=== PATIENT | female | born 1960 | race Caucasian/White ===

== ENCOUNTER 2021-11-29 19:33 | Inpatient (IN) | payer OTHER ==
[2021-11-29] MEDS ORDERED: DEXAMETHASONE SOD PHOSPHATE 10 MG/1 ML VIAL IVPUSH ONE (20:14)
[2021-11-29] MEDS ORDERED: clonazePAM 0.5 MG TABLET PO ONE ×2 (20:16→22:27)
[2021-11-29] MEDS ORDERED: DEXAMETHASONE SOD PHOSPHATE 10 MG/1 ML VIAL ONE (20:27)
[2021-11-29] MEDS ORDERED: clonazePAM 0.5 MG TABLET ONE ×2 (20:27→22:29)
[2021-11-29] MEDS ORDERED: ALBUTEROL SO4 2.5/IPRATROPIUM 0.5 INH SOL 3 ML VIAL.NEB. NEB ONE (20:27)
[2021-11-29 21:02] LABS: VENOUS BASE EXCESS 4.6 mmol/L (-2-2); VENOUS O2 SATURATION 58.1 % (70-80); VENOUS PCO2 60.9 mmHg (38-52); VENOUS PH 7.341 (7.310-7.410)
[2021-11-29 21:04] LABS: BASO % 0.5 % (0-2.0); EOS % 1.6 % (0-4.5); HEMATOCRIT 40.4 % (32.4-45.2); LYMPH % 11.8 % (8-40); MCH 25.3 pg (25.7-33.7); MCHC 32.2 g/dl (32.0-36.0); MEAN CELL VOLUME 78.5 fl (80-96); MONO % 8.2 % (3.8-10.2); NEUT % 77.9 % (42.8-82.8); PLATELET COUNT 238 10^3/uL (134-434); RBC 5.15 M/mm3 (3.60-5.2); RDW 16.2 % (11.6-15.6); WHITE BLOOD COUNT 10.2 K/mm3 (4.0-10.0)
[2021-11-29 21:21] LABS: CHLORIDE 99 mmol/L (98-107); SODIUM 135 mmol/L (136-145)
[2021-11-29 21:23] LABS: CALCIUM 8.6 mg/dL (8.5-10.1)
[2021-11-29 21:24] LABS: ALBUMIN 3.3 g/dl (3.4-5.0); ANION GAP 5 MMOL/L (8-16); BLOOD UREA NITROGEN 9.6 mg/dL (7-18); CO2 32 mmol/L (21-32); GLUCOSE,RANDOM 201 mg/dL (74-106); MAGNESIUM 2.4 mg/dL (1.8-2.4)
[2021-11-29 21:27] LABS: CREATININE 0.9 mg/dL (0.55-1.3); SGOT/AST 16 U/L (15-37); SGPT/ALT 22 U/L (13-61)
[2021-11-29 21:29] LABS: BILIRUBIN,TOTAL 0.5 mg/dL (0.2-1); TOT PROT 6.4 g/dl (6.4-8.2)
[2021-11-29 21:30] LABS: ALK PHOS 106 U/L (45-117)
[2021-11-29] MEDS: ALBUTEROL SO4 2.5/IPRATROPIUM 0.5 INH SOL 3 ML VIAL.NEB. NEB SCH ×4 (22:00→22:46)
[2021-11-29 22:01] LABS: ARTERIAL BLD GAS O2 SATURATION 70.2 % (95-98); ARTERIAL BLOOD GAS BASE EXCESS 7.4 mmol/L (-2-2); ARTERIAL BLOOD GAS pH 7.369 (7.350-7.450)
[2021-11-29 22:06] LABS: ARTERIAL BLOOD GAS PO2 38.9 mmHg (80-100)
[2021-11-29 22:19] LABS: N-TERMINAL BNP 1548.89 pg/ml (5-125)
[2021-11-29] MEDS ORDERED: ASPIRIN 81 MG CHEWABLE TABLETS PO ONE (22:26)
[2021-11-29] MEDS ORDERED: traZODone HCL 100 MG TABLET (FP) PO ONE (22:27)
[2021-11-29] MEDS ORDERED: ASPIRIN 81 MG CHEWABLE TABLETS ONE (22:27)
[2021-11-30] MEDS ORDERED: CLOPIDOGREL BISULFATE 300 MG TABLET PO ONE (01:00)
[2021-11-30] MEDS ORDERED: ENOXAPARIN NA (PORCINE) 120 MG/0.8 ML DISP.SYRIN SQ SCH (01:07)
[2021-11-30] MEDS ORDERED: FUROSEMIDE 40 MG/4 ML INJECTABLE VIAL IVPUSH ONE (01:31)
[2021-11-30] MEDS ORDERED: ATORVASTATIN CA 80 MG TABLET (FP) PO ONE (01:33)
[2021-11-30] MEDS ORDERED: ATORVASTATIN CA 80 MG TABLET (FP) ONE (01:54)
[2021-11-30] MEDS ORDERED: CLOPIDOGREL BISULFATE 300 MG TABLET ONE (01:54)
[2021-11-30] MEDS ORDERED: ENOXAPARIN NA (PORCINE) 100 MG/1 ML DISP.SYRIN SQ ONE ×2 (01:54→11:26)
[2021-11-30] MEDS ORDERED: FUROSEMIDE 40 MG/4 ML INJECTABLE VIAL ONE ×2 (01:55→11:27)
[2021-11-30] MEDS ORDERED: ENOXAPARIN NA (PORCINE) 30 MG/0.3 ML DISP.SYRIN SQ ONE ×2 (01:55→11:26)
[2021-11-30] MEDS: ENOXAPARIN 100 MG, ENOXAPARIN 30 MG SQ SCH ×2 (02:10→11:39)
[2021-11-30 03:55] LABS: URINE APPEARANCE CLEAR; URINE BILIRUBIN NEGATIVE (NEGATIVE); URINE COLOR YELLOW; URINE GLUCOSE (UA) NEGATIVE (NEGATIVE); URINE KETONE NEGATIVE (NEGATIVE); URINE LEUK ESTERASE NEGATIVE (NEGATIVE); URINE NITRITE NEGATIVE (NEGATIVE); URINE PROTEIN NEGATIVE (NEGATIVE); URINE UROBILINOGEN 0.2 mg/dL (0.2-1.0)
[2021-11-30 06:47] LABS: HEMATOCRIT 41.8 % (32.4-45.2); HEMOGLOBIN 13.1 GM/dL (10.7-15.3); MCH 24.8 pg (25.7-33.7); MCHC 31.2 g/dl (32.0-36.0); MEAN CELL VOLUME 79.4 fl (80-96); MEAN PLT VOLUME 8.2 fl (7.5-11.1); PLATELET COUNT 256 10^3/uL (134-434); RBC 5.27 M/mm3 (3.60-5.2); WHITE BLOOD COUNT 6.7 K/mm3 (4.0-10.0)
[2021-11-30 07:01] LABS: CALCIUM 8.3 mg/dL (8.5-10.1)
[2021-11-30 07:02] LABS: ALBUMIN 3.2 g/dl (3.4-5.0); BLOOD UREA NITROGEN 8.2 mg/dL (7-18); MAGNESIUM 2.2 mg/dL (1.8-2.4)
[2021-11-30 07:05] LABS: CREATININE 0.9 mg/dL (0.55-1.3); PHOSPHOROUS 4.2 mg/dL (2.5-4.9)
[2021-11-30 07:06] LABS: BILIRUBIN,TOTAL 0.4 mg/dL (0.2-1); TOT PROT 6.6 g/dl (6.4-8.2)
[2021-11-30] MEDS ORDERED: CLOPIDOGREL BISULFATE 75 MG TABLET (FP) PO SCH (10:00)
[2021-11-30 10:27] LABS: ANISOCYTOSIS 0; MACROCYTOSIS 0; PLATELET ESTIMATE NORMAL
[2021-11-30] MEDS: INSULIN SLIDING SCALE (NOVOLOG) 1 VIAL SQ SCH ×3 (11:21→17:35)
[2021-11-30] MEDS ORDERED: CLOPIDOGREL BISULFATE 75 MG TABLET (FP) ONE (11:26)
[2021-11-30] MEDS ORDERED: ASPIRIN COATED 81 MG TABLET.EC ONE (11:26)
[2021-11-30] MEDS: ASPIRIN COATED 81 MG TABLET.EC PO SCH (11:39)
[2021-11-30] MEDS: FUROSEMIDE 40 MG/4 ML INJECTABLE VIAL IVPUSH SCH (11:39)
[2021-11-30] MEDS: clonazePAM 0.5 MG TABLET PO SCH ×3 (14:10→21:32)
[2021-11-30] MEDS ORDERED: clonazePAM 0.5 MG TABLET PO SCH (14:15)
[2021-11-30] MEDS ORDERED: PATIENT'S OWN MEDICATION (NON-FORMULARY) (Ipratropium/Albuterol Sulfate 1 PUFF Inhaler) NEB PRN (15:34)
[2021-11-30] MEDS ORDERED: MAG HYDROX/AL HYDROX/SIMETH 30 ML UNIT-DOSE CUP PO PRN (15:45)
[2021-11-30 19:10] VITALS: BMI 44.6
[2021-11-30] MEDS: ATORVASTATIN CA 40 MG TABLET (FP) PO SCH (21:32)
[2021-11-30] MEDS: PREGABALIN 75 MG CAPSULE PO SCH (21:33)
[2021-11-30] MEDS: traZODone HCL 50 MG TABLET (FP) PO SCH (21:33)
[2021-11-30] MEDS: SENNOSIDES 8.6MG TABLET (FP) PO SCH (21:35)
[2021-11-30] MEDS: CILOSTAZOL 50 MG TABLET PO SCH (22:00)
[2021-11-30] MEDS: HALOPERIDOL 0.5 MG TABLET PO SCH (22:00)
[2021-11-30] MEDS: BUDESONIDE/FORMETEROL FUMARATE 160/4.5 mcg INHALER IH SCH (22:00)
[2021-12-01] MEDS ORDERED: LEVOTHYROXINE NA 50 MCG TABLET (FP) ONE (05:52)
[2021-12-01] MEDS ORDERED: LEVOTHYROXINE NA 125 MCG TABLET (FP) ONE (05:52)
[2021-12-01] MEDS: LEVOTHYROXINE 50 MCG, LEVOTHYROXINE 125 MCG PO SCH (06:03)
[2021-12-01] MEDS: INSULIN SLIDING SCALE (NOVOLOG) 1 VIAL SQ SCH ×3 (06:07→17:01)
[2021-12-01] MEDS ORDERED: LEVOTHYROXINE NA 150 MCG TABLET PO SCH (10:00)
[2021-12-01] MEDS ORDERED: PATIENT'S OWN MEDICATION (NON-FORMULARY) (Lurasidone Hcl [Latuda] 60 MG Tablet) PO SCH (10:00)
[2021-12-01] MEDS ORDERED: PATIENT'S OWN MEDICATION (NON-FORMULARY) (Linaclotide [Linzess] 145 MCG Capsule) PO SCH (10:00)
[2021-12-01] MEDS ORDERED: POLYETHYLENE GLYCOL (HEALTHYLAX) 3350 17 GM PACKET PO SCH (10:00)
[2021-12-01] MEDS: ASPIRIN COATED 81 MG TABLET.EC PO SCH (10:06)
[2021-12-01] MEDS: CILOSTAZOL 50 MG TABLET PO SCH ×2 (10:06→21:26)
[2021-12-01] MEDS: PREGABALIN 75 MG CAPSULE PO SCH ×2 (10:06→21:26)
[2021-12-01] MEDS: LISINOPRIL 5 MG TABLET PO SCH ×2 (10:07→10:15)
[2021-12-01] MEDS: clonazePAM 0.5 MG TABLET PO SCH ×4 (10:08→21:25)
[2021-12-01] MEDS: NICOTINE 14 MG/24 HOURS TOPICAL PATCH TD SCH (10:09)
[2021-12-01] MEDS: FUROSEMIDE 40 MG/4 ML INJECTABLE VIAL IVPUSH SCH (10:10)
[2021-12-01] MEDS: lamoTRIgine 100 MG TABLET PO SCH ×2 (10:13→21:25)
[2021-12-01] MEDS: HALOPERIDOL 0.5 MG TABLET PO SCH ×2 (10:13→21:25)
[2021-12-01] MEDS: BUDESONIDE/FORMETEROL FUMARATE 160/4.5 mcg INHALER IH SCH ×2 (10:36→21:31)
[2021-12-01] MEDS: CITALOPRAM HYDROBROMIDE 10 MG TABLET PO SCH (10:37)
[2021-12-01 11:14] LABS: BASO % 0.2 % (0-2.0); EOS % 1.4 % (0-4.5); HEMATOCRIT 44.8 % (32.4-45.2); HEMOGLOBIN 13.8 GM/dL (10.7-15.3); LYMPH % 14.4 % (8-40); MCH 24.4 pg (25.7-33.7); MCHC 30.8 g/dl (32.0-36.0); MEAN PLT VOLUME 8.2 fl (7.5-11.1); MONO % 7.1 % (3.8-10.2); NEUT % 76.9 % (42.8-82.8); PLATELET COUNT 272 10^3/uL (134-434); RBC 5.66 M/mm3 (3.60-5.2); RDW 16.1 % (11.6-15.6); WHITE BLOOD COUNT 7.4 K/mm3 (4.0-10.0)
[2021-12-01 11:33] LABS: CHLORIDE 98 mmol/L (98-107); SODIUM 137 mmol/L (136-145)
[2021-12-01 11:35] LABS: ALBUMIN 3.2 g/dl (3.4-5.0); ANION GAP 5 MMOL/L (8-16); CALCIUM 8.8 mg/dL (8.5-10.1); CO2 34 mmol/L (21-32); GLUCOSE,RANDOM 211 mg/dL (74-106)
[2021-12-01 11:36] LABS: BLOOD UREA NITROGEN 7.7 mg/dL (7-18)
[2021-12-01 11:38] LABS: CREATININE 0.8 mg/dL (0.55-1.3)
[2021-12-01 11:39] LABS: SGOT/AST 18 U/L (15-37); SGPT/ALT 24 U/L (13-61)
[2021-12-01 11:40] LABS: BILIRUBIN,TOTAL 0.6 mg/dL (0.2-1); TOT PROT 6.4 g/dl (6.4-8.2)
[2021-12-01 11:41] LABS: ALK PHOS 91 U/L (45-117)
[2021-12-01] MEDS: metoPROLOL SUCCINATE 25 MG TAB.SR.24H (FP) PO SCH (13:57)
[2021-12-01] MEDS: traZODone HCL 50 MG TABLET (FP) PO SCH (21:25)
[2021-12-01] MEDS: ATORVASTATIN CA 40 MG TABLET (FP) PO SCH (21:25)
[2021-12-01] MEDS: SENNOSIDES 8.6MG TABLET (FP) PO SCH (21:31)
[2021-12-02] MEDS ORDERED: LEVOTHYROXINE NA 125 MCG TABLET (FP) ONE (05:55)
[2021-12-02] MEDS ORDERED: LEVOTHYROXINE NA 50 MCG TABLET (FP) ONE (05:55)
[2021-12-02] MEDS: INSULIN SLIDING SCALE (NOVOLOG) 1 VIAL SQ SCH ×3 (06:09→17:56)
[2021-12-02] MEDS: LEVOTHYROXINE 50 MCG, LEVOTHYROXINE 125 MCG PO SCH (06:12)
[2021-12-02 08:49] LABS: BASO % 0.2 % (0-2.0); EOS % 1.7 % (0-4.5); HEMATOCRIT 44.5 % (32.4-45.2); HEMOGLOBIN 14.4 GM/dL (10.7-15.3); LYMPH % 16.2 % (8-40); MCH 25.7 pg (25.7-33.7); MCHC 32.3 g/dl (32.0-36.0); MEAN CELL VOLUME 79.5 fl (80-96); MEAN PLT VOLUME 7.8 fl (7.5-11.1); MONO % 9.8 % (3.8-10.2); NEUT % 72.1 % (42.8-82.8); PLATELET COUNT 283 10^3/uL (134-434); RBC 5.59 M/mm3 (3.60-5.2); RDW 16.3 % (11.6-15.6); WHITE BLOOD COUNT 7.4 K/mm3 (4.0-10.0)
[2021-12-02 09:04] LABS: CHLORIDE 101 mmol/L (98-107); SODIUM 140 mmol/L (136-145)
[2021-12-02 09:10] LABS: CALCIUM 9.5 mg/dL (8.5-10.1)
[2021-12-02 09:11] LABS: ALBUMIN 3.3 g/dl (3.4-5.0); ANION GAP 6 MMOL/L (8-16); BLOOD UREA NITROGEN 7.6 mg/dL (7-18); CO2 33 mmol/L (21-32); GLUCOSE,RANDOM 190 mg/dL (74-106)
[2021-12-02 09:13] LABS: SGOT/AST 12 U/L (15-37); SGPT/ALT 24 U/L (13-61)
[2021-12-02 09:14] LABS: CREATININE 0.9 mg/dL (0.55-1.3)
[2021-12-02 09:15] LABS: BILIRUBIN,TOTAL 0.7 mg/dL (0.2-1); TOT PROT 6.6 g/dl (6.4-8.2)
[2021-12-02 09:16] LABS: ALK PHOS 93 U/L (45-117)
[2021-12-02] MEDS: FUROSEMIDE 40 MG/4 ML INJECTABLE VIAL IVPUSH SCH (09:35)
[2021-12-02] MEDS: LISINOPRIL 5 MG TABLET PO SCH (09:36)
[2021-12-02] MEDS: CITALOPRAM HYDROBROMIDE 10 MG TABLET PO SCH (09:38)
[2021-12-02] MEDS: clonazePAM 0.5 MG TABLET PO SCH ×4 (09:38→21:00)
[2021-12-02] MEDS: CILOSTAZOL 50 MG TABLET PO SCH ×2 (09:38→21:03)
[2021-12-02] MEDS: PREGABALIN 75 MG CAPSULE PO SCH ×2 (09:38→21:01)
[2021-12-02] MEDS: HALOPERIDOL 0.5 MG TABLET PO SCH ×2 (09:39→21:03)
[2021-12-02] MEDS: ASPIRIN COATED 81 MG TABLET.EC PO SCH (09:39)
[2021-12-02] MEDS: metoPROLOL SUCCINATE 25 MG TAB.SR.24H (FP) PO SCH (09:40)
[2021-12-02] MEDS: NICOTINE 14 MG/24 HOURS TOPICAL PATCH TD SCH (09:42)
[2021-12-02] MEDS: lamoTRIgine 100 MG TABLET PO SCH ×2 (09:44→21:00)
[2021-12-02] MEDS: BUDESONIDE/FORMETEROL FUMARATE 160/4.5 mcg INHALER IH SCH ×2 (10:05→21:44)
[2021-12-02] MEDS: POLYETHYLENE GLYCOL (HEALTHYLAX) 3350 17 GM PACKET PO SCH ×2 (14:24→21:02)
[2021-12-02] MEDS: traZODone HCL 50 MG TABLET (FP) PO SCH (21:01)
[2021-12-02] MEDS: SENNOSIDES 8.6MG TABLET (FP) PO SCH (21:01)
[2021-12-02] MEDS: ATORVASTATIN CA 40 MG TABLET (FP) PO SCH (21:01)
[2021-12-03] MEDS ORDERED: MAG HYDROX/AL HYDROX/SIMETH 30 ML UNIT-DOSE CUP PO PRN (05:04)
[2021-12-03] MEDS ORDERED: LEVOTHYROXINE NA 50 MCG TABLET (FP) ONE (05:44)
[2021-12-03] MEDS ORDERED: LEVOTHYROXINE NA 125 MCG TABLET (FP) ONE (05:44)
[2021-12-03] MEDS: POLYETHYLENE GLYCOL (HEALTHYLAX) 3350 17 GM PACKET PO SCH ×2 (06:03→13:46)
[2021-12-03] MEDS: INSULIN SLIDING SCALE (NOVOLOG) 1 VIAL SQ SCH ×2 (06:06→12:16)
[2021-12-03] MEDS ORDERED: LEVOTHYROXINE 50 MCG, LEVOTHYROXINE 125 MCG PO SCH (07:00)
[2021-12-03 09:05] LABS: CHLORIDE 102 mmol/L (98-107); SODIUM 140 mmol/L (136-145)
[2021-12-03 09:13] LABS: ALBUMIN 3.1 g/dl (3.4-5.0); CALCIUM 8.8 mg/dL (8.5-10.1); GLUCOSE,RANDOM 151 mg/dL (74-106)
[2021-12-03 09:14] LABS: ANION GAP 7 MMOL/L (8-16); BLOOD UREA NITROGEN 8.4 mg/dL (7-18); CO2 31 mmol/L (21-32)
[2021-12-03 09:16] LABS: SGPT/ALT 26 U/L (13-61)
[2021-12-03 09:17] LABS: CREATININE 0.8 mg/dL (0.55-1.3); SGOT/AST 11 U/L (15-37)
[2021-12-03 09:18] LABS: BILIRUBIN,TOTAL 0.6 mg/dL (0.2-1); TOT PROT 6.1 g/dl (6.4-8.2)
[2021-12-03 09:19] LABS: ALK PHOS 93 U/L (45-117)
[2021-12-03] MEDS: clonazePAM 0.5 MG TABLET PO SCH ×2 (09:23→13:45)
[2021-12-03] MEDS ORDERED: metoPROLOL SUCCINATE 25 MG TAB.SR.24H (FP) PO SCH (10:00)
[2021-12-03] MEDS ORDERED: NICOTINE 14 MG/24 HOURS TOPICAL PATCH TD SCH (10:00)
[2021-12-03] MEDS ORDERED: ASPIRIN COATED 81 MG TABLET.EC PO SCH (10:00)
[2021-12-03] MEDS ORDERED: PREGABALIN 75 MG CAPSULE PO SCH (10:00)
[2021-12-03] MEDS ORDERED: CILOSTAZOL 50 MG TABLET PO SCH (10:00)
[2021-12-03] MEDS ORDERED: CITALOPRAM HYDROBROMIDE 10 MG TABLET PO SCH (10:00)
[2021-12-03] MEDS ORDERED: HALOPERIDOL 0.5 MG TABLET PO SCH (10:00)
[2021-12-03] MEDS ORDERED: LISINOPRIL 5 MG TABLET PO SCH (10:00)
[2021-12-03] MEDS ORDERED: BUDESONIDE/FORMETEROL FUMARATE 160/4.5 mcg INHALER IH SCH (10:00)
[2021-12-03] MEDS ORDERED: TORSEMIDE 20 MG TABLET (FP) PO SCH (10:00)
[2021-12-03] MEDS ORDERED: PANTOPRAZOLE 20 MG TABLET PO SCH ×2 (10:00)
[2021-12-03] MEDS ORDERED: lamoTRIgine 100 MG TABLET PO SCH (10:00)
[2021-12-03 13:15] VITALS: BP 120/79; PULSE 90; TEMP 97.9
[2021-12-03] MEDS ORDERED: SENNOSIDES 8.6MG TABLET (FP) PO SCH (22:00)
[2021-12-03] MEDS ORDERED: ATORVASTATIN CA 40 MG TABLET (FP) PO SCH (22:00)
[2021-12-03] MEDS ORDERED: traZODone HCL 50 MG TABLET (FP) PO SCH (22:00)
== END 2021-12-03 16:28 | DRG 291 ==
LOC: JER 19:33 → JERBED 22:19 → J4W 11-30 18:42 → J8W 12-02 19:09
PROVIDERS: ADMIT Internal Medicine; ATTEND Family Medicine
DX: I11.0 Hypertensive heart disease with heart failure (principal); J96.01 Acute respiratory failure with hypoxia; I50.33 Acute on chronic diastolic (congestive) heart failure; J96.02 Acute respiratory failure with hypercapnia; Z68.41 Body mass index [BMI] 40.0-44.9, adult; I24.8 Other forms of acute ischemic heart disease; J98.11 Atelectasis; J44.9 Chronic obstructive pulmonary disease, unspecified; E78.00 Pure hypercholesterolemia, unspecified; E03.9 Hypothyroidism, unspecified; K59.03 Drug induced constipation; T40.2X5A Adverse effect of other opioids, initial encounter; F20.9 Schizophrenia, unspecified; E66.01 Morbid (severe) obesity due to excess calories; E11.51 Type 2 diabetes mellitus with diabetic peripheral angiopathy without gangrene; R77.8 Other specified abnormalities of plasma proteins; I25.10 Atherosclerotic heart disease of native coronary artery without angina pectoris; F17.200 Nicotine dependence, unspecified, uncomplicated; K59.00 Constipation, unspecified; K58.9 Irritable bowel syndrome, unspecified; Z86.73 Personal history of transient ischemic attack (TIA), and cerebral infarction without residual deficits; Z99.81 Dependence on supplemental oxygen
CPT/HCPCS: 36415; 36600; 71045-TC-FY; 71275-TC; 80053; 80061; 81003; 82550; 82553; 82803; 82962; 83036; 83735; 83880; 84100; 84439; 84443; 84484; 85025; 85379; 87040; 87086; 93005; 93010; 93306-TC; 99285-25; C9803; J1100; Q9967; U0003; U0005

== ENCOUNTER 2022-01-29 16:29 | Inpatient (IN) | payer OTHER ==
[2022-01-29 17:08] VITALS: BMI 41.5
[2022-01-29] MEDS ORDERED: ALBUTEROL SO4 2.5/IPRATROPIUM 0.5 INH SOL 3 ML VIAL.NEB. NEB ONE ×2 (17:16→17:22)
[2022-01-29] MEDS ORDERED: methylPREDNISolone NA SUCC 125 MG/2 ML VIAL IVPB ONE (17:17)
[2022-01-29] MEDS ORDERED: methylPREDNISolone NA SUCC 125 MG/2 ML VIAL ONE (17:22)
[2022-01-29 18:17] LABS: BASO % 0.3 % (0-2.0); EOS % 1.4 % (0-4.5); HEMATOCRIT 42.2 % (32.4-45.2); HEMOGLOBIN 13.4 GM/dL (10.7-15.3); LYMPH % 11.1 % (8-40); MCH 25.6 pg (25.7-33.7); MCHC 31.9 g/dl (32.0-36.0); MEAN CELL VOLUME 80.3 fl (80-96); NEUT % 79.2 % (42.8-82.8); PLATELET COUNT 260 10^3/uL (134-434); RBC 5.25 M/mm3 (3.60-5.2); WHITE BLOOD COUNT 7.7 K/mm3 (4.0-10.0)
[2022-01-29 18:32] LABS: CALCIUM 9.3 mg/dL (8.5-10.1)
[2022-01-29 18:33] LABS: ALBUMIN 3.7 g/dl (3.4-5.0); BLOOD UREA NITROGEN 14.3 mg/dL (7-18)
[2022-01-29 18:36] LABS: CREATININE 1.5 mg/dL (0.55-1.3)
[2022-01-29 18:37] LABS: BILIRUBIN,TOTAL 0.4 mg/dL (0.2-1); TOT PROT 6.7 g/dl (6.4-8.2)
[2022-01-29 18:40] LABS: N-TERMINAL BNP 18.2 pg/ml (5-125)
[2022-01-29 19:22] LABS: ARTERIAL BLD GAS O2 SATURATION 98.8 % (95-98); ARTERIAL BLOOD GAS BASE EXCESS 3.1 mmol/L (-2-2); ARTERIAL BLOOD GAS PO2 136.5 mmHg (80-100); ARTERIAL BLOOD GAS pH 7.426 (7.350-7.450)
[2022-01-29] MEDS ORDERED: CEFTRIAXONE 1,000 MG in DEXTROSE 5%-WATER - 50 ML IVPB ONE (19:50)
[2022-01-29] MEDS ORDERED: SODIUM CHLORIDE 0.9% 500 ML INFUS.BAG IV ONE (19:50)
[2022-01-29] MEDS ORDERED: AZITHROMYCIN IVPB 500 MG in DEXTROSE 5%-WATER - 250 ML IVPB ONE (19:51)
[2022-01-29] MEDS ORDERED: AZITHROMYCIN IVPB 500 MG/250 ML BAG IVPB ONE (20:07)
[2022-01-29] MEDS ORDERED: CEFTRIAXONE 1 GM/50 ML BAG ONE (20:07)
[2022-01-29] MEDS ORDERED: LORazepam 2 MG/ML SDV VIAL IVPUSH ONE (21:01)
[2022-01-30 04:05] LABS: ARTERIAL BLD GAS O2 SATURATION 92.2 % (95-98); ARTERIAL BLOOD GAS BASE EXCESS 2.9 mmol/L (-2-2); ARTERIAL BLOOD GAS pH 7.424 (7.350-7.450)
[2022-01-30 04:06] LABS: ALLENS TEST POSITIVE
[2022-01-30] MEDS ORDERED: methylPREDNISolone NA SUCC 40 MG/1 ML VIAL ONE (04:34)
[2022-01-30] MEDS: methylPREDNISolone NA SUCC 40 MG/1 ML VIAL IVPUSH SCH ×3 (04:45→18:09)
[2022-01-30] MEDS ORDERED: LEVOTHYROXINE NA 100 MCG TABLET (FP) ONE (06:38)
[2022-01-30] MEDS ORDERED: LEVOTHYROXINE NA 75 MCG TABLET (FP) ONE ×2 (06:38→06:44)
[2022-01-30] MEDS: LEVOTHYROXINE 100 MCG, LEVOTHYROXINE 75 MCG PO SCH (06:41)
[2022-01-30] MEDS: clonazePAM 0.5 MG TABLET PO SCH ×3 (06:41→18:08)
[2022-01-30] MEDS ORDERED: LEVOTHYROXINE NA 150 MCG TABLET PO SCH (07:00)
[2022-01-30 07:07] LABS: HEMATOCRIT 43.2 % (32.4-45.2); HEMOGLOBIN 13.9 GM/dL (10.7-15.3); MCH 25.8 pg (25.7-33.7); MCHC 32.2 g/dl (32.0-36.0); MEAN PLT VOLUME 8.2 fl (7.5-11.1); PLATELET COUNT 294 10^3/uL (134-434); RBC 5.39 M/mm3 (3.60-5.2); RDW 19.6 % (11.6-15.6); WHITE BLOOD COUNT 8.4 K/mm3 (4.0-10.0)
[2022-01-30 07:19] LABS: CALCIUM 9.5 mg/dL (8.5-10.1)
[2022-01-30 07:20] LABS: ALBUMIN 3.7 g/dl (3.4-5.0); BLOOD UREA NITROGEN 10.6 mg/dL (7-18)
[2022-01-30 07:23] LABS: CREATININE 1.1 mg/dL (0.55-1.3)
[2022-01-30 07:24] LABS: BILIRUBIN,TOTAL 0.8 mg/dL (0.2-1); TOT PROT 7.2 g/dl (6.4-8.2)
[2022-01-30 08:30] LABS: ANISOCYTOSIS 1+; MACROCYTOSIS 1+
[2022-01-30] MEDS ORDERED: ONDANSETRON 4 MG/2 ML VIAL IVPUSH PRN (09:21)
[2022-01-30] MEDS ORDERED: HALOPERIDOL 1 MG TABLET PO SCH (10:00)
[2022-01-30] MEDS ORDERED: DOCUSATE SODIUM 100 MG CAPSULE (FP) PO SCH (10:00)
[2022-01-30] MEDS ORDERED: FAMOTIDINE 20 MG TABLET PO SCH (10:00)
[2022-01-30] MEDS ORDERED: PATIENT'S OWN MEDICATION (NON-FORMULARY) (Lisinopril [Zestril] 2.5 MG Tablet) PO SCH (10:00)
[2022-01-30] MEDS ORDERED: AZITHROMYCIN IVPB 500 MG in DEXTROSE 5%-WATER - 250 ML IVPB SCH (10:00)
[2022-01-30] MEDS ORDERED: cefTRIAXone SODIUM 1 GM VIAL ONE (10:22)
[2022-01-30] MEDS ORDERED: DEXTROSE 5%-WATER - 50 ML IVPB ONE (10:23)
[2022-01-30] MEDS: PREGABALIN 75 MG CAPSULE PO SCH ×2 (10:30→21:52)
[2022-01-30] MEDS: lamoTRIgine 100 MG TABLET PO SCH ×2 (10:30→21:55)
[2022-01-30] MEDS: TORSEMIDE 20 MG TABLET (FP) PO SCH (10:30)
[2022-01-30] MEDS: metoPROLOL SUCCINATE 25 MG TAB.SR.24H (FP) PO SCH (10:31)
[2022-01-30] MEDS: CITALOPRAM HYDROBROMIDE 10 MG TABLET PO SCH (10:31)
[2022-01-30] MEDS: SENNOSIDES 8.6MG TABLET (FP) PO SCH ×2 (10:31→21:53)
[2022-01-30] MEDS: HALOPERIDOL PO SCH ×2 (10:32→21:52)
[2022-01-30] MEDS: CEFTRIAXONE 1 GM in DEXTROSE 5%-WATER - 50 ML IVPB SCH (10:33)
[2022-01-30] MEDS: ASPIRIN COATED 81 MG TABLET.EC PO SCH (10:55)
[2022-01-30] MEDS: POTASSIUM CHLORIDE TABS 10 MEQ TABLET.ER (FP) PO SCH (10:55)
[2022-01-30] MEDS ORDERED: AZITHROMYCIN IVPB 500 MG/250 ML BAG IVPB SCH (12:23)
[2022-01-30] MEDS: AZITHROMYCIN IVPB 500 MG/250 ML BAG IVPB SCH (13:03)
[2022-01-30 15:07] LABS: SARS-CoV-2 NAA Not Detected (Not Detected)
[2022-01-30] MEDS: DEXTROSE 5%-0.45% SALINE 1,000 ML IV SCH (15:10)
[2022-01-30 15:52] LABS: PH,URINE 8.5 (5.0-8.0); URINE APPEARANCE CLEAR; URINE BILIRUBIN NEGATIVE (NEGATIVE); URINE COLOR YELLOW; URINE GLUCOSE (UA) 1+ (NEGATIVE); URINE KETONE NEGATIVE (NEGATIVE); URINE LEUK ESTERASE NEGATIVE (NEGATIVE); URINE NITRITE NEGATIVE (NEGATIVE); URINE PROTEIN NEGATIVE (NEGATIVE); URINE UROBILINOGEN 0.2 mg/dL (0.2-1.0)
[2022-01-30] MEDS: ATORVASTATIN CA 40 MG TABLET (FP) PO SCH (21:52)
[2022-01-30] MEDS: traZODone HCL 100 MG TABLET (FP) PO SCH (21:52)
[2022-01-30] MEDS: QUEtiapine FUMARATE 200 MG TABLET PO SCH (21:52)
[2022-01-30] MEDS ORDERED: POLYETHYLENE GLYCOL (HEALTHYLAX) 3350 17 GM PACKET GT SCH (22:00)
[2022-01-31] MEDS: methylPREDNISolone NA SUCC 40 MG/1 ML VIAL IVPUSH SCH ×3 (01:22→18:03)
[2022-01-31] MEDS: clonazePAM 0.5 MG TABLET PO SCH ×4 (01:23→17:54)
[2022-01-31] MEDS ORDERED: LEVOTHYROXINE NA 100 MCG TABLET (FP) ONE ×2 (05:54→06:14)
[2022-01-31] MEDS ORDERED: LEVOTHYROXINE NA 75 MCG TABLET (FP) ONE ×2 (05:54→06:13)
[2022-01-31] MEDS: LEVOTHYROXINE 100 MCG, LEVOTHYROXINE 75 MCG PO SCH (06:14)
[2022-01-31] MEDS ORDERED: cefTRIAXone SODIUM 1 GM VIAL ONE (09:01)
[2022-01-31] MEDS ORDERED: DEXTROSE 5%-WATER - 50 ML IVPB ONE (09:01)
[2022-01-31] MEDS: AZITHROMYCIN IVPB 500 MG/250 ML BAG IVPB SCH (10:07)
[2022-01-31] MEDS: CEFTRIAXONE 1 GM in DEXTROSE 5%-WATER - 50 ML IVPB SCH (10:14)
[2022-01-31] MEDS: SENNOSIDES 8.6MG TABLET (FP) PO SCH ×2 (10:32→22:29)
[2022-01-31] MEDS: TORSEMIDE 20 MG TABLET (FP) PO SCH (10:35)
[2022-01-31] MEDS: PREGABALIN 75 MG CAPSULE PO SCH ×2 (10:35→22:54)
[2022-01-31] MEDS: lamoTRIgine 100 MG TABLET PO SCH ×2 (10:35→22:28)
[2022-01-31] MEDS: ASPIRIN COATED 81 MG TABLET.EC PO SCH (10:35)
[2022-01-31] MEDS: CITALOPRAM HYDROBROMIDE 10 MG TABLET PO SCH (10:36)
[2022-01-31] MEDS: metoPROLOL SUCCINATE 25 MG TAB.SR.24H (FP) PO SCH (10:36)
[2022-01-31] MEDS: HALOPERIDOL PO SCH ×2 (10:37→22:05)
[2022-01-31] MEDS: PANTOPRAZOLE SODIUM 40 MG VIAL IVPUSH SCH (10:40)
[2022-01-31] MEDS: POLYETHYLENE GLYCOL (HEALTHYLAX) 3350 17 GM PACKET GT SCH ×3 (10:40→23:19)
[2022-01-31] MEDS: MINERAL OIL ENEMA 133 ML ENEMA RC SCH (10:41)
[2022-01-31] MEDS: POTASSIUM CHLORIDE TABS 10 MEQ TABLET.ER (FP) PO SCH (11:59)
[2022-01-31] MEDS: DEXTROSE 5%-0.45% SALINE 1,000 ML IV SCH (15:04)
[2022-01-31] MEDS: ATORVASTATIN CA 40 MG TABLET (FP) PO SCH (22:28)
[2022-01-31] MEDS: HALOPERIDOL NGT SCH (22:56)
[2022-01-31] MEDS: lamoTRIgine 100 MG TABLET NGT SCH (22:57)
[2022-01-31] MEDS: traZODone HCL 100 MG TABLET (FP) PO SCH (22:58)
[2022-01-31] MEDS: QUEtiapine FUMARATE 200 MG TABLET NGT SCH (22:58)
[2022-01-31] MEDS: ATORVASTATIN CA 40 MG TABLET (FP) NGT SCH (22:59)
[2022-01-31] MEDS: traZODone HCL 100 MG TABLET (FP) NR SCH (23:25)
[2022-01-31] MEDS: SENNOSIDES 8.8 MG/5 ML BULK BOTTLE NGT SCH (23:25)
[2022-01-31] MEDS: QUEtiapine FUMARATE 200 MG TABLET PO SCH (23:29)
[2022-01-31] MEDS: clonazePAM 0.5 MG TABLET NGT SCH (23:40)
[2022-02-01] MEDS: methylPREDNISolone NA SUCC 40 MG/1 ML VIAL IVPUSH SCH ×3 (02:20→17:18)
[2022-02-01] MEDS ORDERED: LEVOTHYROXINE NA 75 MCG TABLET (FP) ONE (06:01)
[2022-02-01] MEDS ORDERED: LEVOTHYROXINE NA 100 MCG TABLET (FP) ONE (06:01)
[2022-02-01] MEDS: LEVOTHYROXINE 100 MCG, LEVOTHYROXINE 75 MCG NGT SCH (06:02)
[2022-02-01] MEDS: POLYETHYLENE GLYCOL (HEALTHYLAX) 3350 17 GM PACKET GT SCH ×3 (06:03→22:24)
[2022-02-01] MEDS: clonazePAM 0.5 MG TABLET NGT SCH ×3 (06:03→19:11)
[2022-02-01 06:54] LABS: HEMATOCRIT 45.6 % (32.4-45.2); HEMOGLOBIN 14.8 GM/dL (10.7-15.3); MCH 25.8 pg (25.7-33.7); MCHC 32.4 g/dl (32.0-36.0); MEAN CELL VOLUME 79.6 fl (80-96); MEAN PLT VOLUME 7.9 fl (7.5-11.1); PLATELET COUNT 257 10^3/uL (134-434); RBC 5.73 M/mm3 (3.60-5.2); RDW 19.7 % (11.6-15.6); WHITE BLOOD COUNT 9.3 K/mm3 (4.0-10.0)
[2022-02-01 07:07] LABS: CALCIUM 8.5 mg/dL (8.5-10.1)
[2022-02-01 07:08] LABS: BLOOD UREA NITROGEN 15.6 mg/dL (7-18); MAGNESIUM 2.2 mg/dL (1.8-2.4)
[2022-02-01 07:11] LABS: CREATININE 1.1 mg/dL (0.55-1.3)
[2022-02-01] MEDS ORDERED: DEXTROSE 5%-WATER - 50 ML IVPB ONE (09:19)
[2022-02-01] MEDS ORDERED: cefTRIAXone SODIUM 1 GM VIAL ONE (09:19)
[2022-02-01] MEDS: PREGABALIN 75 MG CAPSULE NR SCH ×2 (10:07→22:20)
[2022-02-01] MEDS: METOPROLOL TARTRATE 25 MG TABLET (FP) NGT SCH ×2 (10:07→22:23)
[2022-02-01] MEDS: lamoTRIgine 100 MG TABLET NGT SCH ×2 (10:07→22:26)
[2022-02-01] MEDS: ASPIRIN 81 MG CHEWABLE TABLETS NGT SCH (10:08)
[2022-02-01] MEDS: CEFTRIAXONE 1 GM in DEXTROSE 5%-WATER - 50 ML IVPB SCH (10:08)
[2022-02-01] MEDS: PANTOPRAZOLE SODIUM 40 MG VIAL IVPUSH SCH (10:08)
[2022-02-01] MEDS: TORSEMIDE 20 MG TABLET (FP) NR SCH (10:08)
[2022-02-01] MEDS: AZITHROMYCIN IVPB 500 MG/250 ML BAG IVPB SCH (10:09)
[2022-02-01] MEDS: CITALOPRAM HYDROBROMIDE 10 MG TABLET NGT SCH (10:12)
[2022-02-01] MEDS: SENNOSIDES 8.8 MG/5 ML BULK BOTTLE NGT SCH ×2 (10:13→22:29)
[2022-02-01] MEDS: HALOPERIDOL NGT SCH ×2 (10:14→22:27)
[2022-02-01] MEDS: MINERAL OIL ENEMA 133 ML ENEMA RC SCH (10:14)
[2022-02-01] MEDS ORDERED: PEG 3350/NA SULF BICARB CL/KCL 4000 ML SOLN.RECON PO ONE (12:00)
[2022-02-01] MEDS: DEXTROSE 5%-0.45% SALINE 1,000 ML IV SCH (13:42)
[2022-02-01] MEDS: ATORVASTATIN CA 40 MG TABLET (FP) NGT SCH (22:23)
[2022-02-01] MEDS: traZODone HCL 100 MG TABLET (FP) NR SCH (22:25)
[2022-02-01] MEDS: QUEtiapine FUMARATE 200 MG TABLET NGT SCH (22:27)
[2022-02-02] MEDS: clonazePAM 0.5 MG TABLET NGT SCH ×4 (00:24→18:03)
[2022-02-02] MEDS: methylPREDNISolone NA SUCC 40 MG/1 ML VIAL IVPUSH SCH ×3 (02:02→18:04)
[2022-02-02] MEDS: POLYETHYLENE GLYCOL (HEALTHYLAX) 3350 17 GM PACKET GT SCH ×2 (05:52→14:23)
[2022-02-02] MEDS ORDERED: LEVOTHYROXINE NA 75 MCG TABLET (FP) ONE (06:04)
[2022-02-02] MEDS ORDERED: LEVOTHYROXINE NA 100 MCG TABLET (FP) ONE (06:04)
[2022-02-02] MEDS: LEVOTHYROXINE 100 MCG, LEVOTHYROXINE 75 MCG NGT SCH (06:05)
[2022-02-02 09:16] LABS: CALCIUM 8.3 mg/dL (8.5-10.1)
[2022-02-02 09:17] LABS: BLOOD UREA NITROGEN 14.2 mg/dL (7-18)
[2022-02-02 09:20] LABS: CREATININE 0.9 mg/dL (0.55-1.3)
[2022-02-02] MEDS ORDERED: cefTRIAXone SODIUM 1 GM VIAL ONE (09:46)
[2022-02-02] MEDS ORDERED: DEXTROSE 5%-WATER - 50 ML IVPB ONE (09:46)
[2022-02-02] MEDS: ASPIRIN 81 MG CHEWABLE TABLETS NGT SCH (09:58)
[2022-02-02] MEDS: CITALOPRAM HYDROBROMIDE 10 MG TABLET NGT SCH (09:58)
[2022-02-02] MEDS: TORSEMIDE 20 MG TABLET (FP) NR SCH (09:58)
[2022-02-02] MEDS: PREGABALIN 75 MG CAPSULE NR SCH ×2 (09:59→23:43)
[2022-02-02] MEDS: METOPROLOL TARTRATE 25 MG TABLET (FP) NGT SCH ×2 (09:59→23:44)
[2022-02-02] MEDS: lamoTRIgine 100 MG TABLET NGT SCH ×2 (09:59→23:45)
[2022-02-02] MEDS: CEFTRIAXONE 1 GM in DEXTROSE 5%-WATER - 50 ML IVPB SCH (10:00)
[2022-02-02] MEDS: AZITHROMYCIN IVPB 500 MG/250 ML BAG IVPB SCH (10:00)
[2022-02-02] MEDS: PANTOPRAZOLE SODIUM 40 MG VIAL IVPUSH SCH (10:00)
[2022-02-02] MEDS: SENNOSIDES 8.8 MG/5 ML BULK BOTTLE NGT SCH ×2 (10:01→23:45)
[2022-02-02] MEDS: HALOPERIDOL NGT SCH ×2 (10:02→23:45)
[2022-02-02] MEDS: DEXTROSE 5%-0.45% SALINE 1,000 ML IV SCH (14:23)
[2022-02-02] MEDS: QUEtiapine FUMARATE 200 MG TABLET NGT SCH (23:43)
[2022-02-02] MEDS: traZODone HCL 100 MG TABLET (FP) NR SCH (23:44)
[2022-02-02] MEDS: ATORVASTATIN CA 40 MG TABLET (FP) NGT SCH (23:44)
[2022-02-03] MEDS: POLYETHYLENE GLYCOL (HEALTHYLAX) 3350 17 GM PACKET GT SCH ×4 (00:03→21:05)
[2022-02-03] MEDS: clonazePAM 0.5 MG TABLET NGT SCH ×5 (02:22→23:03)
[2022-02-03] MEDS: methylPREDNISolone NA SUCC 40 MG/1 ML VIAL IVPUSH SCH ×3 (02:22→21:05)
[2022-02-03] MEDS ORDERED: LEVOTHYROXINE NA 100 MCG TABLET (FP) ONE (06:24)
[2022-02-03] MEDS ORDERED: LEVOTHYROXINE NA 75 MCG TABLET (FP) ONE (06:24)
[2022-02-03] MEDS: LEVOTHYROXINE 100 MCG, LEVOTHYROXINE 75 MCG NGT SCH (07:04)
[2022-02-03] MEDS: INSULIN (LEVEMIR) 100 UNITS/ML UNITS SQ SCH (07:22)
[2022-02-03] MEDS: INSULIN SLIDING SCALE (NOVOLOG) 1 VIAL SQ SCH ×3 (07:23→17:33)
[2022-02-03] MEDS ORDERED: DEXTROSE 5%-WATER - 50 ML IVPB ONE (10:55)
[2022-02-03] MEDS ORDERED: cefTRIAXone SODIUM 1 GM VIAL ONE (10:55)
[2022-02-03] MEDS: ASPIRIN 81 MG CHEWABLE TABLETS NGT SCH (10:58)
[2022-02-03] MEDS: CITALOPRAM HYDROBROMIDE 10 MG TABLET NGT SCH (10:58)
[2022-02-03] MEDS: TORSEMIDE 20 MG TABLET (FP) NR SCH (10:58)
[2022-02-03] MEDS: lamoTRIgine 100 MG TABLET NGT SCH ×2 (10:59→21:02)
[2022-02-03] MEDS: METOPROLOL TARTRATE 25 MG TABLET (FP) NGT SCH ×2 (10:59→21:02)
[2022-02-03] MEDS: HALOPERIDOL NGT SCH ×2 (10:59→21:03)
[2022-02-03] MEDS: CEFTRIAXONE 1 GM in DEXTROSE 5%-WATER - 50 ML IVPB SCH (11:00)
[2022-02-03] MEDS: PANTOPRAZOLE SODIUM 40 MG VIAL IVPUSH SCH (11:00)
[2022-02-03] MEDS: PREGABALIN 75 MG CAPSULE NR SCH ×2 (11:00→21:04)
[2022-02-03] MEDS: SENNOSIDES 8.8 MG/5 ML BULK BOTTLE NGT SCH (11:00)
[2022-02-03] MEDS: AZITHROMYCIN IVPB 500 MG/250 ML BAG IVPB SCH (11:01)
[2022-02-03] MEDS ORDERED: SENNOSIDES 8.6MG TABLET (FP) PO PRN (12:14)
[2022-02-03] MEDS: DEXTROSE 5%-0.45% SALINE 1,000 ML IV SCH (14:43)
[2022-02-03] MEDS: traZODone HCL 100 MG TABLET (FP) NR SCH (21:01)
[2022-02-03] MEDS: ATORVASTATIN CA 40 MG TABLET (FP) NGT SCH (21:04)
[2022-02-03] MEDS: QUEtiapine FUMARATE 200 MG TABLET NGT SCH (21:04)
[2022-02-03] MEDS: LIOTHYRONINE SODIUM 5 MCG TABLET PO SCH (22:14)
[2022-02-04] MEDS ORDERED: LEVOTHYROXINE NA 100 MCG TABLET (FP) ONE (06:29)
[2022-02-04] MEDS ORDERED: LEVOTHYROXINE NA 75 MCG TABLET (FP) ONE (06:29)
[2022-02-04] MEDS: clonazePAM 0.5 MG TABLET NGT SCH ×4 (06:35→23:02)
[2022-02-04] MEDS: LEVOTHYROXINE 100 MCG, LEVOTHYROXINE 75 MCG NGT SCH (06:36)
[2022-02-04] MEDS: POLYETHYLENE GLYCOL (HEALTHYLAX) 3350 17 GM PACKET GT SCH ×3 (06:36→21:03)
[2022-02-04] MEDS: INSULIN SLIDING SCALE (NOVOLOG) 1 VIAL SQ SCH ×3 (06:39→17:17)
[2022-02-04] MEDS: INSULIN (LEVEMIR) 100 UNITS/ML UNITS SQ SCH (06:39)
[2022-02-04] MEDS ORDERED: PANTOPRAZOLE 20 MG TABLET PO SCH (10:00)
[2022-02-04] MEDS ORDERED: cefTRIAXone SODIUM 1 GM VIAL ONE (10:01)
[2022-02-04] MEDS ORDERED: DEXTROSE 5%-WATER - 50 ML IVPB ONE (10:01)
[2022-02-04] MEDS: CEFTRIAXONE 1 GM in DEXTROSE 5%-WATER - 50 ML IVPB SCH (10:17)
[2022-02-04] MEDS: AZITHROMYCIN IVPB 500 MG/250 ML BAG IVPB SCH (10:56)
[2022-02-04] MEDS: PREGABALIN 75 MG CAPSULE NR SCH ×2 (10:59→21:02)
[2022-02-04] MEDS: METOPROLOL TARTRATE 25 MG TABLET (FP) NGT SCH ×2 (10:59→21:02)
[2022-02-04] MEDS: methylPREDNISolone NA SUCC 40 MG/1 ML VIAL IVPUSH SCH ×2 (10:59→21:02)
[2022-02-04] MEDS: CITALOPRAM HYDROBROMIDE 10 MG TABLET NGT SCH (10:59)
[2022-02-04] MEDS: TORSEMIDE 20 MG TABLET (FP) NR SCH (10:59)
[2022-02-04] MEDS: ASPIRIN 81 MG CHEWABLE TABLETS NGT SCH (11:00)
[2022-02-04] MEDS: lamoTRIgine 100 MG TABLET NGT SCH ×2 (11:00→21:02)
[2022-02-04] MEDS: HALOPERIDOL NGT SCH ×2 (12:37→23:02)
[2022-02-04] MEDS: DEXTROSE 5%-0.45% SALINE 1,000 ML IV SCH ×3 (14:38→23:09)
[2022-02-04] MEDS: ATORVASTATIN CA 40 MG TABLET (FP) NGT SCH (21:02)
[2022-02-04] MEDS: traZODone HCL 100 MG TABLET (FP) NR SCH (21:03)
[2022-02-04] MEDS ORDERED: SENNOSIDES 8.6MG TABLET (FP) PO SCH (22:00)
[2022-02-04] MEDS ORDERED: INSULIN (LEVEMIR) 100 UNITS/ML UNITS SQ SCH (22:00)
[2022-02-04] MEDS: QUEtiapine FUMARATE 200 MG TABLET NGT SCH (23:01)
[2022-02-04] MEDS: LIOTHYRONINE SODIUM 5 MCG TABLET PO SCH (23:02)
[2022-02-05] MEDS ORDERED: LEVOTHYROXINE NA 75 MCG TABLET (FP) ONE (06:13)
[2022-02-05] MEDS ORDERED: LEVOTHYROXINE NA 100 MCG TABLET (FP) ONE (06:13)
[2022-02-05] MEDS: LEVOTHYROXINE 100 MCG, LEVOTHYROXINE 75 MCG NGT SCH (06:20)
[2022-02-05] MEDS: clonazePAM 0.5 MG TABLET NGT SCH (06:21)
[2022-02-05] MEDS: POLYETHYLENE GLYCOL (HEALTHYLAX) 3350 17 GM PACKET GT SCH (06:21)
[2022-02-05] MEDS ORDERED: INSULIN SLIDING SCALE (NOVOLOG) 1 VIAL SQ SCH (07:00)
[2022-02-05] MEDS ORDERED: INSULIN (LEVEMIR) 100 UNITS/ML UNITS SQ SCH (07:00)
[2022-02-05] MEDS ORDERED: ONDANSETRON 4 MG/2 ML VIAL IVPUSH PRN (08:01)
[2022-02-05] MEDS ORDERED: METOPROLOL TARTRATE 25 MG TABLET (FP) NGT SCH (10:00)
[2022-02-05] MEDS ORDERED: cefTRIAXone SODIUM 1 GM VIAL ONE (10:29)
[2022-02-05] MEDS ORDERED: DEXTROSE 5%-WATER - 50 ML IVPB ONE (10:30)
[2022-02-05] MEDS: methylPREDNISolone NA SUCC 40 MG/1 ML VIAL IVPUSH SCH ×2 (10:35→22:06)
[2022-02-05] MEDS: CEFTRIAXONE 1 GM in DEXTROSE 5%-WATER - 50 ML IVPB SCH (10:35)
[2022-02-05] MEDS: PANTOPRAZOLE 20 MG TABLET PO SCH (10:36)
[2022-02-05] MEDS: CITALOPRAM HYDROBROMIDE 10 MG TABLET PO SCH (10:36)
[2022-02-05] MEDS: ASPIRIN 81 MG CHEWABLE TABLETS PO SCH (10:36)
[2022-02-05] MEDS: PREGABALIN 75 MG CAPSULE PO SCH ×2 (10:36→22:03)
[2022-02-05] MEDS: HALOPERIDOL PO SCH ×2 (10:37→22:06)
[2022-02-05] MEDS: TORSEMIDE 20 MG TABLET (FP) PO SCH (10:37)
[2022-02-05] MEDS: DEXTROSE 5%-0.45% SALINE 1,000 ML IV SCH ×2 (10:38→12:21)
[2022-02-05] MEDS: AZITHROMYCIN IVPB 500 MG/250 ML BAG IVPB SCH (10:38)
[2022-02-05] MEDS: INSULIN SLIDING SCALE (NOVOLOG) 1 VIAL SQ SCH ×2 (12:22→17:24)
[2022-02-05] MEDS: clonazePAM 0.5 MG TABLET PO SCH ×2 (12:26→17:25)
[2022-02-05] MEDS: lamoTRIgine 100 MG TABLET PO SCH ×2 (13:48→22:01)
[2022-02-05] MEDS: POLYETHYLENE GLYCOL (HEALTHYLAX) 3350 17 GM PACKET PO SCH ×2 (13:49→22:07)
[2022-02-05] MEDS: QUEtiapine FUMARATE 200 MG TABLET PO SCH (22:00)
[2022-02-05] MEDS: LIOTHYRONINE SODIUM 5 MCG TABLET PO SCH (22:00)
[2022-02-05] MEDS: traZODone HCL 100 MG TABLET (FP) PO SCH (22:00)
[2022-02-05] MEDS: SENNOSIDES 8.6MG TABLET (FP) PO SCH (22:02)
[2022-02-05] MEDS: ATORVASTATIN CA 40 MG TABLET (FP) PO SCH (22:02)
[2022-02-05] MEDS: INSULIN (LEVEMIR) 100 UNITS/ML UNITS SQ SCH (22:10)
[2022-02-06] MEDS: clonazePAM 0.5 MG TABLET PO SCH ×4 (00:43→17:38)
[2022-02-06] MEDS: INSULIN (LEVEMIR) 100 UNITS/ML UNITS SQ SCH ×2 (06:30→22:27)
[2022-02-06] MEDS: INSULIN SLIDING SCALE (NOVOLOG) 1 VIAL SQ SCH ×3 (06:31→16:57)
[2022-02-06] MEDS: POLYETHYLENE GLYCOL (HEALTHYLAX) 3350 17 GM PACKET PO SCH ×3 (06:54→22:24)
[2022-02-06] MEDS ORDERED: INSULIN (NOVOLOG) ASPART 100 UNITS/ML 10ML VIAL ONE ×2 (07:48→11:08)
[2022-02-06 09:33] LABS: BLOOD UREA NITROGEN 13.1 mg/dL (7-18); CALCIUM 8.6 mg/dL (8.5-10.1)
[2022-02-06 09:36] LABS: CREATININE 0.9 mg/dL (0.55-1.3)
[2022-02-06 09:38] LABS: BILIRUBIN,TOTAL 0.5 mg/dL (0.2-1); TOT PROT 5.7 g/dl (6.4-8.2)
[2022-02-06 09:40] LABS: ALBUMIN 2.9 g/dl (3.4-5.0)
[2022-02-06] MEDS ORDERED: DEXTROSE 5%-WATER - 50 ML IVPB ONE (10:03)
[2022-02-06] MEDS ORDERED: cefTRIAXone SODIUM 1 GM VIAL ONE (10:03)
[2022-02-06] MEDS: methylPREDNISolone NA SUCC 40 MG/1 ML VIAL IVPUSH SCH ×2 (10:07→22:26)
[2022-02-06] MEDS: CEFTRIAXONE 1 GM in DEXTROSE 5%-WATER - 50 ML IVPB SCH (10:07)
[2022-02-06] MEDS: PANTOPRAZOLE 20 MG TABLET PO SCH (10:17)
[2022-02-06] MEDS: ASPIRIN 81 MG CHEWABLE TABLETS PO SCH (10:17)
[2022-02-06] MEDS: PREGABALIN 75 MG CAPSULE PO SCH ×2 (10:17→21:45)
[2022-02-06] MEDS: CITALOPRAM HYDROBROMIDE 10 MG TABLET PO SCH (10:17)
[2022-02-06] MEDS: TORSEMIDE 20 MG TABLET (FP) PO SCH (10:17)
[2022-02-06] MEDS: HALOPERIDOL PO SCH ×2 (10:18→22:25)
[2022-02-06] MEDS: lamoTRIgine 100 MG TABLET PO SCH ×2 (10:19→22:26)
[2022-02-06] MEDS ORDERED: LEVOTHYROXINE NA 100 MCG TABLET (FP) ONE ×3 (10:20→10:24)
[2022-02-06] MEDS ORDERED: LEVOTHYROXINE NA 75 MCG TABLET (FP) ONE ×2 (10:21→10:22)
[2022-02-06] MEDS: LEVOTHYROXINE 100 MCG, LEVOTHYROXINE 75 MCG PO SCH (10:24)
[2022-02-06] MEDS: AZITHROMYCIN IVPB 500 MG/250 ML BAG IVPB SCH (10:47)
[2022-02-06] MEDS: traZODone HCL 100 MG TABLET (FP) PO SCH (22:26)
[2022-02-06] MEDS: SENNOSIDES 8.6MG TABLET (FP) PO SCH (22:26)
[2022-02-06] MEDS: ATORVASTATIN CA 40 MG TABLET (FP) PO SCH (22:26)
[2022-02-06] MEDS: QUEtiapine FUMARATE 200 MG TABLET PO SCH (22:30)
[2022-02-06] MEDS: LIOTHYRONINE SODIUM 5 MCG TABLET PO SCH (22:55)
[2022-02-07] MEDS: clonazePAM 0.5 MG TABLET PO SCH ×4 (00:01→17:48)
[2022-02-07] MEDS ORDERED: LEVOTHYROXINE NA 100 MCG TABLET (FP) ONE (06:10)
[2022-02-07] MEDS ORDERED: LEVOTHYROXINE NA 75 MCG TABLET (FP) ONE (06:11)
[2022-02-07] MEDS: LEVOTHYROXINE 100 MCG, LEVOTHYROXINE 75 MCG PO SCH (06:16)
[2022-02-07] MEDS: INSULIN SLIDING SCALE (NOVOLOG) 1 VIAL SQ SCH ×3 (06:17→16:40)
[2022-02-07] MEDS: INSULIN (LEVEMIR) 100 UNITS/ML UNITS SQ SCH ×2 (06:18→22:28)
[2022-02-07] MEDS: POLYETHYLENE GLYCOL (HEALTHYLAX) 3350 17 GM PACKET PO SCH ×3 (06:19→22:24)
[2022-02-07] MEDS ORDERED: INSULIN (NOVOLOG) ASPART 100 UNITS/ML 10ML VIAL ONE ×2 (07:09→11:15)
[2022-02-07] MEDS ORDERED: cefTRIAXone SODIUM 1 GM VIAL ONE (10:02)
[2022-02-07] MEDS ORDERED: DEXTROSE 5%-WATER - 50 ML IVPB ONE (10:02)
[2022-02-07] MEDS: CEFTRIAXONE 1 GM in DEXTROSE 5%-WATER - 50 ML IVPB SCH (10:05)
[2022-02-07] MEDS: methylPREDNISolone NA SUCC 40 MG/1 ML VIAL IVPUSH SCH (10:06)
[2022-02-07] MEDS: CITALOPRAM HYDROBROMIDE 10 MG TABLET PO SCH (10:06)
[2022-02-07] MEDS: TORSEMIDE 20 MG TABLET (FP) PO SCH (10:06)
[2022-02-07] MEDS: PANTOPRAZOLE 20 MG TABLET PO SCH (10:06)
[2022-02-07] MEDS: ASPIRIN 81 MG CHEWABLE TABLETS PO SCH (10:06)
[2022-02-07] MEDS: PREGABALIN 75 MG CAPSULE PO SCH ×2 (10:06→22:22)
[2022-02-07] MEDS: HALOPERIDOL PO SCH ×2 (10:07→22:21)
[2022-02-07] MEDS: lamoTRIgine 100 MG TABLET PO SCH ×2 (10:09→22:23)
[2022-02-07] MEDS: AZITHROMYCIN IVPB 500 MG/250 ML BAG IVPB SCH (10:56)
[2022-02-07 16:09] LABS: SARS-CoV-2 NAA Not Detected (Not Detected)
[2022-02-07] MEDS: LIOTHYRONINE SODIUM 5 MCG TABLET PO SCH (22:15)
[2022-02-07] MEDS: traZODone HCL 100 MG TABLET (FP) PO SCH (22:20)
[2022-02-07] MEDS: predniSONE 20 MG TABLET (UD) PO SCH (22:20)
[2022-02-07] MEDS: ATORVASTATIN CA 40 MG TABLET (FP) PO SCH (22:22)
[2022-02-07] MEDS: QUEtiapine FUMARATE 200 MG TABLET PO SCH (22:25)
[2022-02-07] MEDS: SENNOSIDES 8.6MG TABLET (FP) PO SCH (22:25)
[2022-02-08] MEDS: clonazePAM 0.5 MG TABLET PO SCH ×4 (01:22→17:46)
[2022-02-08] MEDS ORDERED: LEVOTHYROXINE NA 100 MCG TABLET (FP) ONE (06:10)
[2022-02-08] MEDS ORDERED: LEVOTHYROXINE NA 75 MCG TABLET (FP) ONE (06:10)
[2022-02-08] MEDS: POLYETHYLENE GLYCOL (HEALTHYLAX) 3350 17 GM PACKET PO SCH ×3 (06:33→21:30)
[2022-02-08] MEDS: INSULIN (LEVEMIR) 100 UNITS/ML UNITS SQ SCH ×2 (06:37→21:31)
[2022-02-08] MEDS: INSULIN SLIDING SCALE (NOVOLOG) 1 VIAL SQ SCH ×3 (06:37→17:12)
[2022-02-08] MEDS: LEVOTHYROXINE 100 MCG, LEVOTHYROXINE 75 MCG PO SCH (06:38)
[2022-02-08] MEDS ORDERED: INSULIN (NOVOLOG) ASPART 100 UNITS/ML 10ML VIAL ONE ×2 (07:36→20:31)
[2022-02-08] MEDS: ASPIRIN 81 MG CHEWABLE TABLETS PO SCH (10:33)
[2022-02-08] MEDS: CITALOPRAM HYDROBROMIDE 10 MG TABLET PO SCH (10:34)
[2022-02-08] MEDS: TORSEMIDE 20 MG TABLET (FP) PO SCH (10:34)
[2022-02-08] MEDS: PANTOPRAZOLE 20 MG TABLET PO SCH (10:34)
[2022-02-08] MEDS: predniSONE 20 MG TABLET (UD) PO SCH ×2 (10:34→21:29)
[2022-02-08] MEDS: PREGABALIN 75 MG CAPSULE PO SCH ×2 (10:34→21:29)
[2022-02-08] MEDS: HALOPERIDOL PO SCH ×2 (10:40→21:30)
[2022-02-08] MEDS: lamoTRIgine 100 MG TABLET PO SCH ×2 (11:41→21:30)
[2022-02-08] MEDS: SENNOSIDES 8.6MG TABLET (FP) PO SCH (21:28)
[2022-02-08] MEDS: traZODone HCL 100 MG TABLET (FP) PO SCH (21:29)
[2022-02-08] MEDS: ATORVASTATIN CA 40 MG TABLET (FP) PO SCH (21:29)
[2022-02-08] MEDS: LIOTHYRONINE SODIUM 5 MCG TABLET PO SCH (21:30)
[2022-02-08] MEDS: QUEtiapine FUMARATE 200 MG TABLET PO SCH (21:37)
[2022-02-09] MEDS: clonazePAM 0.5 MG TABLET PO SCH ×5 (01:12→23:31)
[2022-02-09] MEDS ORDERED: LEVOTHYROXINE NA 75 MCG TABLET (FP) ONE (05:07)
[2022-02-09] MEDS ORDERED: LEVOTHYROXINE NA 100 MCG TABLET (FP) ONE (05:07)
[2022-02-09] MEDS: POLYETHYLENE GLYCOL (HEALTHYLAX) 3350 17 GM PACKET PO SCH ×3 (05:54→22:04)
[2022-02-09] MEDS: INSULIN (LEVEMIR) 100 UNITS/ML UNITS SQ SCH ×2 (06:13→22:08)
[2022-02-09] MEDS: LEVOTHYROXINE 100 MCG, LEVOTHYROXINE 75 MCG PO SCH (06:13)
[2022-02-09] MEDS: INSULIN SLIDING SCALE (NOVOLOG) 1 VIAL SQ SCH ×3 (06:13→18:05)
[2022-02-09] MEDS: PREGABALIN 75 MG CAPSULE PO SCH ×2 (11:00→22:05)
[2022-02-09] MEDS: PANTOPRAZOLE 20 MG TABLET PO SCH (11:00)
[2022-02-09] MEDS: CITALOPRAM HYDROBROMIDE 10 MG TABLET PO SCH (11:00)
[2022-02-09] MEDS: predniSONE 20 MG TABLET (UD) PO SCH ×2 (11:00→22:06)
[2022-02-09] MEDS: HALOPERIDOL PO SCH ×2 (11:01→22:06)
[2022-02-09] MEDS: ASPIRIN 81 MG CHEWABLE TABLETS PO SCH (11:01)
[2022-02-09] MEDS: TORSEMIDE 20 MG TABLET (FP) PO SCH (11:01)
[2022-02-09] MEDS: lamoTRIgine 100 MG TABLET PO SCH ×2 (11:25→22:06)
[2022-02-09] MEDS ORDERED: INSULIN (NOVOLOG) ASPART 100 UNITS/ML 10ML VIAL ONE ×2 (13:42→19:25)
[2022-02-09] MEDS ORDERED: QUEtiapine FUMARATE 100 MG TABLET (FP) PO SCH (22:00)
[2022-02-09] MEDS: traZODone HCL 100 MG TABLET (FP) PO SCH (22:04)
[2022-02-09] MEDS: SENNOSIDES 8.6MG TABLET (FP) PO SCH (22:05)
[2022-02-09] MEDS: ATORVASTATIN CA 40 MG TABLET (FP) PO SCH (22:05)
[2022-02-09] MEDS: LIOTHYRONINE SODIUM 5 MCG TABLET PO SCH (22:06)
[2022-02-10] MEDS ORDERED: INSULIN (NOVOLOG) ASPART 100 UNITS/ML 10ML VIAL ONE (06:02)
[2022-02-10] MEDS ORDERED: LEVOTHYROXINE NA 100 MCG TABLET (FP) ONE ×3 (06:02→06:03)
[2022-02-10] MEDS ORDERED: LEVOTHYROXINE NA 75 MCG TABLET (FP) ONE ×3 (06:02→06:03)
[2022-02-10] MEDS: INSULIN SLIDING SCALE (NOVOLOG) 1 VIAL SQ SCH ×2 (06:05→11:47)
[2022-02-10] MEDS: INSULIN (LEVEMIR) 100 UNITS/ML UNITS SQ SCH (06:06)
[2022-02-10] MEDS: clonazePAM 0.5 MG TABLET PO SCH ×2 (06:07→11:41)
[2022-02-10] MEDS: POLYETHYLENE GLYCOL (HEALTHYLAX) 3350 17 GM PACKET PO SCH (06:07)
[2022-02-10] MEDS: LEVOTHYROXINE 100 MCG, LEVOTHYROXINE 75 MCG PO SCH (06:07)
[2022-02-10] MEDS: CITALOPRAM HYDROBROMIDE 10 MG TABLET PO SCH (10:22)
[2022-02-10] MEDS: TORSEMIDE 20 MG TABLET (FP) PO SCH (10:23)
[2022-02-10] MEDS: ASPIRIN 81 MG CHEWABLE TABLETS PO SCH (10:23)
[2022-02-10] MEDS: PANTOPRAZOLE 20 MG TABLET PO SCH (10:23)
[2022-02-10] MEDS: lamoTRIgine 100 MG TABLET PO SCH (10:23)
[2022-02-10] MEDS: HALOPERIDOL PO SCH (10:23)
[2022-02-10] MEDS: predniSONE 20 MG TABLET (UD) PO SCH (10:23)
[2022-02-10] MEDS: PREGABALIN 75 MG CAPSULE PO SCH (10:23)
[2022-02-10 12:37] VITALS: BP 113/68; PULSE 63; TEMP 97.6
[2022-02-11 06:07] LABS: SARS-CoV-2 NAA Not Detected (Not Detected)
== END 2022-02-10 13:20 | DRG 683 ==
LOC: JER 16:29 → JERBED 19:53 → J4S 01-30 04:53 → J8W 02-05 06:55
PROVIDERS: ADMIT Hospitalist; ATTEND Family Medicine
DX: N17.9 Acute kidney failure, unspecified (principal); J96.11 Chronic respiratory failure with hypoxia; F11.20 Opioid dependence, uncomplicated; Z68.41 Body mass index [BMI] 40.0-44.9, adult; K56.609 Unspecified intestinal obstruction, unspecified as to partial versus complete obstruction; F05 Delirium due to known physiological condition; I50.32 Chronic diastolic (congestive) heart failure; I11.0 Hypertensive heart disease with heart failure; J43.9 Emphysema, unspecified; F20.9 Schizophrenia, unspecified; E03.9 Hypothyroidism, unspecified; E11.51 Type 2 diabetes mellitus with diabetic peripheral angiopathy without gangrene; E66.9 Obesity, unspecified; E78.5 Hyperlipidemia, unspecified; R11.14 Bilious vomiting; Z99.81 Dependence on supplemental oxygen; G47.30 Sleep apnea, unspecified; K59.03 Drug induced constipation; R00.1 Bradycardia, unspecified
CPT/HCPCS: 36415; 36600; 70450-TC; 71045-TC-FY; 74018-TC-FY; 74176-TC; 76604; 80048; 80053; 81003; 82803; 82962; 83036; 83735; 83880; 84439; 84443; 84484; 85025; 85027; 87040; 87086; 87804; 87807; 93005; 93010; 93225; 93226; 97116-GP; 97161-GP; 99285-25; C9803-CS; U0003; U0005

== ENCOUNTER 2023-12-08 12:11 | Inpatient (IN) | payer OTHER ==
[2023-12-08] MEDS ORDERED: ACETAMINOPHEN INJECTION 100 ML IVPB ONE (14:19)
[2023-12-08] MEDS: SODIUM CHLORIDE 0.9% 500 ML INFUS.BAG IV ONE (14:31)
[2023-12-08] MEDS: ACETAMINOPHEN 1000 MG/100 ML BAG IVPB ONE (14:31)
[2023-12-08 14:35] LABS: BASO % 0.5 % (0-2.0); EOS % 1.6 % (0-4.5); HEMATOCRIT 40.5 % (32.4-45.2); HEMOGLOBIN 13.8 GM/dL (10.7-15.3); LYMPH % 19.5 % (8-40); MCH 28.9 pg (25.7-33.7); MEAN CELL VOLUME 85.1 fl (80-96); MEAN PLT VOLUME 7.9 fl (7.5-11.1); MONO % 8.3 % (3.8-10.2); NEUT % 70.1 % (42.8-82.8); PLATELET COUNT 209 10^3/uL (134-434); RBC 4.76 M/mm3 (3.60-5.2); RDW 13.2 % (11.6-15.6); WHITE BLOOD COUNT 7.1 K/mm3 (4.0-10.0)
[2023-12-08 14:58] LABS: POTASSIUM 3.7 mmol/L (3.5-5.1)
[2023-12-08 15:01] LABS: ALBUMIN 3.6 g/dl (3.4-5.0); BLOOD UREA NITROGEN 9.4 mg/dL (7-18); CALCIUM 9.2 mg/dL (8.5-10.1)
[2023-12-08 15:04] LABS: CREATININE 0.9 mg/dL (0.55-1.3)
[2023-12-08 15:07] LABS: BILIRUBIN,TOTAL 0.4 mg/dL (0.2-1); TOT PROT 6.9 g/dl (6.4-8.2)
[2023-12-08] MEDS ORDERED: AZITHROMYCIN IVPB 500 MG/250 ML BAG IVPB ONE ×2 (16:02→16:11)
[2023-12-08] MEDS ORDERED: OSELTAMIVIR PHOSPHATE 75 MG CAPSULE ONE (16:02)
[2023-12-08] MEDS ORDERED: CEFTRIAXONE 1 GM/50 ML BAG ONE (16:03)
[2023-12-08] MEDS: OSELTAMIVIR PHOSPHATE 75 MG CAPSULE PO ONE (16:04)
[2023-12-08] MEDS: CEFTRIAXONE 1 GM in DEXTROSE 5%-WATER - 100 ML IVPB ONE (16:04)
[2023-12-08] MEDS: AZITHROMYCIN IVPB 500 MG in DEXTROSE 5%-WATER - 250 ML IVPB ONE (17:21)
[2023-12-08] MEDS: FUROSEMIDE 40 MG/4 ML INJECTABLE VIAL IVPUSH ONE (17:21)
[2023-12-08] MEDS: clonazePAM 0.5 MG TABLET PO ONE (17:56)
[2023-12-08] MEDS ORDERED: clonazePAM 0.5 MG TABLET ONE (17:56)
[2023-12-08] MEDS: ALBUTEROL SO4 2.5/IPRATROPIUM 0.5 INH SOL 3 ML VIAL.NEB. NEB SCH (20:27)
[2023-12-08] MEDS ORDERED: ALBUTEROL SO4 2.5/IPRATROPIUM 0.5 INH SOL 3 ML VIAL.NEB. NEB ONE (20:28)
[2023-12-08] MEDS: INSULIN ASPART SLIDING SCALE (NOVOLOG) 1 VIAL SQ SCH (21:22)
[2023-12-09 07:55] LABS: BASO % 0.3 % (0-2.0); EOS % 2.1 % (0-4.5); HEMATOCRIT 38.4 % (32.4-45.2); HEMOGLOBIN 13.2 GM/dL (10.7-15.3); LYMPH % 20.6 % (8-40); MCH 28.8 pg (25.7-33.7); MCHC 34.2 g/dl (32.0-36.0); MEAN CELL VOLUME 84.2 fl (80-96); MEAN PLT VOLUME 8.1 fl (7.5-11.1); MONO % 8.2 % (3.8-10.2); NEUT % 68.8 % (42.8-82.8); PLATELET COUNT 221 10^3/uL (134-434); RBC 4.57 M/mm3 (3.60-5.2); RDW 13.4 % (11.6-15.6); WHITE BLOOD COUNT 6.8 K/mm3 (4.0-10.0)
[2023-12-09 08:27] LABS: POTASSIUM 3.7 mmol/L (3.5-5.1)
[2023-12-09 08:29] LABS: ALBUMIN 3.2 g/dl (3.4-5.0); CALCIUM 8.8 mg/dL (8.5-10.1)
[2023-12-09 08:30] LABS: BLOOD UREA NITROGEN 10.7 mg/dL (7-18)
[2023-12-09 08:33] LABS: CREATININE 0.7 mg/dL (0.55-1.3)
[2023-12-09 08:34] LABS: BILIRUBIN,TOTAL 0.4 mg/dL (0.2-1); TOT PROT 6.3 g/dl (6.4-8.2)
[2023-12-09] MEDS: ENOXAPARIN NA (PORCINE) 40 MG/0.4 ML DISP.SYRIN SQ SCH (13:05)
[2023-12-09] MEDS: OSELTAMIVIR PHOSPHATE 75 MG CAPSULE PO SCH (13:06)
[2023-12-09] MEDS ORDERED: ALBUTEROL SO4 2.5/IPRATROPIUM 0.5 INH SOL 3 ML VIAL.NEB. NEB ONE ×2 (14:36→17:36)
[2023-12-09] MEDS ORDERED: PIPERACILLIN/TAZOB 3.375 GM 3.375 GM/50 ML BAG IVPB ONE (17:30)
[2023-12-09] MEDS: PIPERACILLIN/TAZOB 3.375 GM 3.375 GM in DEXTROSE 5%-WATER - 50 ML IVPB ONE (17:32)
[2023-12-09] MEDS: PIPERACILLIN/TAZOB 3.375 GM 3.375 GM in DEXTROSE 5%-WATER - 50 ML IVPB SCH (17:33)
[2023-12-09] MEDS ORDERED: clonazePAM 0.5 MG TABLET ONE (17:35)
[2023-12-09] MEDS: clonazePAM 0.5 MG TABLET PO PRN (17:38)
[2023-12-09 23:12] VITALS: BMI 37.8
[2023-12-10] MEDS: traZODone HCL 100 MG TABLET (FP) PO ONE (01:23)
[2023-12-10 11:06] LABS: BASO % 0.2 % (0-2.0); EOS % 1.5 % (0-4.5); HEMOGLOBIN 13.2 GM/dL (10.7-15.3); LYMPH % 15.4 % (8-40); MCH 27.9 pg (25.7-33.7); MCHC 32.9 g/dl (32.0-36.0); MEAN CELL VOLUME 84.7 fl (80-96); MEAN PLT VOLUME 8.1 fl (7.5-11.1); MONO % 7.7 % (3.8-10.2); NEUT % 75.2 % (42.8-82.8); PLATELET COUNT 246 10^3/uL (134-434); RBC 4.72 M/mm3 (3.60-5.2); RDW 13.2 % (11.6-15.6); WHITE BLOOD COUNT 7.6 K/mm3 (4.0-10.0)
[2023-12-10 11:31] LABS: POTASSIUM 3.4 mmol/L (3.5-5.1)
[2023-12-10 11:37] LABS: ALBUMIN 3.4 g/dl (3.4-5.0); BLOOD UREA NITROGEN 5.1 mg/dL (7-18)
[2023-12-10 11:40] LABS: CREATININE 0.6 mg/dL (0.55-1.3)
[2023-12-10 11:41] LABS: TOT PROT 6.7 g/dl (6.4-8.2)
[2023-12-10 11:42] LABS: BILIRUBIN,TOTAL 0.6 mg/dL (0.2-1)
[2023-12-10] MEDS ORDERED: clonazePAM 0.5 MG TABLET PO PRN (16:55)
[2023-12-10] MEDS: PREGABALIN 75 MG CAPSULE PO SCH (17:36)
[2023-12-10] MEDS: clonazePAM 0.5 MG TABLET PO PRN (17:36)
[2023-12-10] MEDS: traZODone HCL 50 MG TABLET (FP) PO ONE (23:14)
[2023-12-11] MEDS: ALBUTEROL SO4 2.5/IPRATROPIUM 0.5 INH SOL 3 ML VIAL.NEB. NEB SCH (16:01)
[2023-12-11] MEDS: INSULIN ASPART SLIDING SCALE (NOVOLOG) 1 VIAL SQ SCH (16:56)
[2023-12-11] MEDS ORDERED: PIPERACILLIN/TAZOB 3.375 GM 3.375 GM in DEXTROSE 5%-WATER - 50 ML IVPB SCH (20:00)
[2023-12-11] MEDS: PIPERACILLIN/TAZOB 3.375 GM 3.375 GM in DEXTROSE 5%-WATER - 50 ML IVPB SCH (21:30)
[2023-12-11] MEDS: OSELTAMIVIR PHOSPHATE 75 MG CAPSULE PO SCH (21:31)
[2023-12-12] MEDS: ENOXAPARIN NA (PORCINE) 40 MG/0.4 ML DISP.SYRIN SQ SCH (10:08)
[2023-12-12] MEDS: ONDANSETRON 4 MG/2 ML VIAL IVPUSH ONE (22:36)
[2023-12-12] MEDS: MAG HYDROX/AL HYDROX/SIMETH 30 ML UNIT-DOSE CUP PO PRN (22:36)
[2023-12-12] MEDS: SENNOSIDES 8.6MG TABLET (FP) PO PRN (22:36)
[2023-12-12] MEDS: QUEtiapine FUMARATE 100 MG TABLET (FP) PO SCH (22:40)
[2023-12-12] MEDS: lamoTRIgine 100 MG TABLET PO SCH (22:45)
[2023-12-13] MEDS ORDERED: LEVOTHYROXINE NA 150 MCG TABLET PO SCH (06:30)
[2023-12-13] MEDS: LEVOTHYROXINE 100 MCG, LEVOTHYROXINE 75 MCG PO SCH (06:50)
[2023-12-13] MEDS ORDERED: LEVOTHYROXINE NA 75 MCG TABLET (FP) ONE (07:51)
[2023-12-13] MEDS ORDERED: lamoTRIgine 100 MG TABLET PO SCH (09:00)
[2023-12-13 09:24] LABS: POTASSIUM 3.9 mmol/L (3.5-5.1)
[2023-12-13 09:25] LABS: CALCIUM 8.9 mg/dL (8.5-10.1)
[2023-12-13 09:26] LABS: BLOOD UREA NITROGEN 6.6 mg/dL (7-18); MAGNESIUM 2.3 mg/dL (1.8-2.4)
[2023-12-13 09:29] LABS: CREATININE 0.6 mg/dL (0.55-1.3)
[2023-12-13] MEDS ORDERED: PATIENT'S OWN MEDICATION (NON-FORMULARY) (Pregabalin [Lyrica -] 150 MG Capsule) PO SCH (10:00)
[2023-12-13] MEDS ORDERED: PATIENT'S OWN MEDICATION (NON-FORMULARY) (Clonazepam [Klonopin] 1 MG Tablet) PO SCH (10:00)
[2023-12-13] MEDS: levETIRAcetam 500 MG TABLET (FP) PO SCH (10:09)
[2023-12-13] MEDS: NYSTATIN POWDER 100,000 UNITS/GM - 15 GM TOPICAL POWDER TP SCH (10:11)
[2023-12-13] MEDS: CITALOPRAM HYDROBROMIDE 10 MG TABLET PO SCH (13:53)
[2023-12-13] MEDS ORDERED: HALOPERIDOL 1 MG TABLET PO PRN (19:55)
[2023-12-13] MEDS ORDERED: HALOPERIDOL 0.5 MG TABLET PO PRN (19:58)
[2023-12-13] MEDS: QUEtiapine FUMARATE 100 MG TABLET (FP) PO SCH (21:23)
[2023-12-13] MEDS: ATORVASTATIN CA 40 MG TABLET (FP) PO SCH (21:23)
[2023-12-13] MEDS ORDERED: HALOPERIDOL LACTATE 5 MG/ML IM PRN (22:00)
[2023-12-13] MEDS ORDERED: QUEtiapine FUMARATE 100 MG TABLET (FP) PO SCH (22:00)
[2023-12-14 08:26] LABS: POTASSIUM 4.3 mmol/L (3.5-5.1)
[2023-12-14 08:31] LABS: ALBUMIN 3.1 g/dl (3.4-5.0); BLOOD UREA NITROGEN 8.3 mg/dL (7-18); CALCIUM 9.2 mg/dL (8.5-10.1)
[2023-12-14 08:34] LABS: CREATININE 0.7 mg/dL (0.55-1.3)
[2023-12-14 08:36] LABS: BILIRUBIN,TOTAL 0.5 mg/dL (0.2-1); TOT PROT 6.3 g/dl (6.4-8.2)
[2023-12-14] MEDS: QUEtiapine FUMARATE 100 MG TABLET (FP) PO SCH (21:59)
[2023-12-14] MEDS: HALOPERIDOL 1 MG TABLET PO ONE (22:04)
[2023-12-15] MEDS: HALOPERIDOL LACTATE 5 MG/ML IM SCH (11:59)
[2023-12-15] MEDS: HALOPERIDOL 1 MG TABLET PO PRN (17:52)
[2023-12-17] MEDS ORDERED: LEVOTHYROXINE NA 75 MCG TABLET (FP) ONE (06:32)
[2023-12-18] MEDS: HALOPERIDOL 1 MG TABLET PO SCH (18:49)
[2023-12-18] MEDS: traZODone HCL 50 MG TABLET (FP) PO SCH (22:19)
[2023-12-18] MEDS: HALOPERIDOL 0.5 MG TABLET PO SCH (22:20)
[2023-12-19] MEDS ORDERED: ALBUTEROL SO4 HFA INHALER IH PRN (12:14)
[2023-12-19] MEDS: MAGNESIUM HYDROX 2400MG/30ML ORAL SUSPENSION 30 ML CUP PO PRN (13:12)
[2023-12-19] MEDS: ARTIFICIAL TEARS OPHTHALMIC DROPS OU PRN (17:30)
[2023-12-20] MEDS ORDERED: ALBUTEROL SO4 2.5/IPRATROPIUM 0.5 INH SOL 3 ML VIAL.NEB. NEB PRN (11:55)
[2023-12-20] MEDS: BUDESONIDE/FORMETEROL FUMARATE 160/4.5 mcg INHALER IH SCH (22:18)
[2023-12-21] MEDS: predniSONE 20 MG TABLET (UD) PO SCH (09:18)
[2023-12-22 10:25] VITALS: RESP 17
[2023-12-22] MEDS: ACETAMINOPHEN 325 MG TABLET (FP) PO PRN (13:16)
[2023-12-22 18:22] VITALS: BP 129/75; PULSE 57; TEMP 97.8
== END 2023-12-22 21:45 | DRG 194 ==
LOC: JER 12:11 → JERBED 14:44 → INTOOBSV 14:44 → J5S 12-09 21:58 → OBSVTOIN 12-10 10:21 → J4S 12-11 14:34
PROVIDERS: ADMIT Internal Medicine; ATTEND Internal Medicine
DX: J10.1 Influenza due to other identified influenza virus with other respiratory manifestations (principal); I50.32 Chronic diastolic (congestive) heart failure; J44.1 Chronic obstructive pulmonary disease with (acute) exacerbation; J98.11 Atelectasis; J96.11 Chronic respiratory failure with hypoxia; F20.9 Schizophrenia, unspecified; Z99.81 Dependence on supplemental oxygen; E03.9 Hypothyroidism, unspecified; E11.9 Type 2 diabetes mellitus without complications; G47.00 Insomnia, unspecified; F41.9 Anxiety disorder, unspecified; F41.0 Panic disorder [episodic paroxysmal anxiety]; G40.909 Epilepsy, unspecified, not intractable, without status epilepticus; I11.0 Hypertensive heart disease with heart failure; E66.9 Obesity, unspecified; Z68.37 Body mass index [BMI] 37.0-37.9, adult
CPT/HCPCS: 0241U-QW; 36415; 71045-TC-FY; 71250-TC; 80048; 80053; 80061; 82962; 83036; 83735; 83880; 84100; 84439; 84443; 84484; 85025; 93005; 93010; 93306-TC; 94640; 99285-25; G0378; J0131

== ENCOUNTER 2024-09-04 10:28 | Inpatient (IN) | payer OTHER ==
[2024-09-04 11:15] LABS: EPI CELLS 4 /uL (0-25.1); HYALINE CASTS 0 /uL (0-3.1); URINE APPEARANCE CLEAR; URINE BACTERIA 52 /uL (0-1359); URINE BILIRUBIN NEGATIVE (NEGATIVE); URINE COLOR YELLOW; URINE GLUCOSE (UA) NEGATIVE (NEGATIVE); URINE KETONE NEGATIVE (NEGATIVE); URINE LEUK ESTERASE 1+ (NEGATIVE); URINE NITRITE NEGATIVE (NEGATIVE); URINE PROTEIN NEGATIVE (NEGATIVE); URINE RBC 16 /uL (0-23.9); URINE UROBILINOGEN 0.2 mg/dL (0.2-1.0); URINE WBC 90 /uL (0-25.8)
[2024-09-04 11:33] LABS: VENOUS BASE EXCESS 7.1 mmol/L (-2-2); VENOUS O2 SATURATION 87.7 % (70-80); VENOUS PCO2 57.9 mmHg (38-52); VENOUS PH 7.389 (7.310-7.410)
[2024-09-04 11:40] LABS: HEMOGLOBIN 13.9 GM/dL (10.7-15.3); WHITE BLOOD COUNT 10.4 K/mm3 (4.0-10.0)
[2024-09-04 11:41] LABS: BASO % 0.2 % (0-2.0); EOS % 1.1 % (0-4.5); HEMATOCRIT 43.9 % (32.4-45.2); LYMPH % 9.2 % (8-40); MCH 25.8 pg (25.7-33.7); MCHC 31.7 g/dl (32.0-36.0); MEAN CELL VOLUME 81.3 fl (80-96); MEAN PLT VOLUME 8.4 fl (7.5-11.1); MONO % 8.5 % (3.8-10.2); PLATELET COUNT 234 10^3/uL (134-434)
[2024-09-04 11:43] LABS: INR 1.2 (0.83-1.09); PROTHROMBIN TIME (PATIENT) 13.7 SEC (9.7-13.0)
[2024-09-04 12:01] LABS: POTASSIUM 3.2 mmol/L (3.5-5.1)
[2024-09-04 12:03] LABS: ALBUMIN 3.2 g/dl (3.4-5.0); BLOOD UREA NITROGEN 18.4 mg/dL (7-18); CALCIUM 9.2 mg/dL (8.5-10.1)
[2024-09-04 12:06] LABS: CREATININE 1.1 mg/dL (0.55-1.3)
[2024-09-04 12:08] LABS: BILIRUBIN,TOTAL 1.1 mg/dL (0.2-1)
[2024-09-04] MEDS ORDERED: PIPERACILLIN/TAZOB 4.5 GM 4.5 GM/100 ML BAG IVPB ONE (12:20)
[2024-09-04] MEDS: PIPERACILLIN/TAZOB 4.5 GM 4.5 GM in DEXTROSE 5%-WATER 100 ML IVPB ONE (12:31)
[2024-09-04] MEDS: SODIUM CHLORIDE 0.9% 500 ML INFUS.BAG IV ONE (12:31)
[2024-09-04] MEDS ORDERED: FUROSEMIDE 40 MG/4 ML INJECTABLE VIAL ONE ×2 (13:21→19:14)
[2024-09-04] MEDS: FUROSEMIDE 40 MG/4 ML INJECTABLE VIAL IVPUSH ONE ×2 (13:39→19:23)
[2024-09-04 15:10] LABS: N-TERMINAL BNP 208.7 pg/ml (5-125)
[2024-09-04 16:24] LABS: ARTERIAL BLD GAS O2 SATURATION 98.1 % (95-98); ARTERIAL BLOOD GAS BASE EXCESS 6.5 mmol/L (-2-2); ARTERIAL BLOOD GAS PO2 105.8 mmHg (80-100); ARTERIAL BLOOD GAS pH 7.467 (7.350-7.450)
[2024-09-04 16:42] LABS: ALLENS TEST POSITIVE
[2024-09-04 16:43] LABS: VENT RATE 12
[2024-09-04] MEDS ORDERED: PIPERACILLIN/TAZOB 3.375 GM 3.375 GM/50 ML BAG IVPB ONE (19:14)
[2024-09-04] MEDS: PIPERACILLIN/TAZOB 3.375 GM 3.375 GM in DEXTROSE 5%-WATER - 50 ML IVPB SCH (19:23)
[2024-09-04 21:09] VITALS: BMI 41.8
[2024-09-04] MEDS ORDERED: ALBUTEROL SO4 2.5/IPRATROPIUM 0.5 INH SOL 3 ML VIAL.NEB. NEB PRN (21:26)
[2024-09-04] MEDS: CYCLOBENZAPRINE HCL 10 MG TABLET (FP) PO SCH (21:38)
[2024-09-04] MEDS: QUEtiapine FUMARATE 100 MG TABLET (FP) PO SCH (21:38)
[2024-09-04] MEDS: PREGABALIN 75 MG CAPSULE PO SCH (21:38)
[2024-09-04] MEDS: clonazePAM 0.5 MG TABLET PO SCH (21:38)
[2024-09-04] MEDS: traZODone HCL 50 MG TABLET (FP) PO SCH (21:38)
[2024-09-04] MEDS: ENOXAPARIN NA (PORCINE) 40 MG/0.4 ML DISP.SYRIN SQ SCH (21:38)
[2024-09-04] MEDS: CHLORHEXIDINE GLUCONATE 4% CLEANSER FOR DECOLONIZATION TP SCH (21:39)
[2024-09-04] MEDS: MUPIROCIN 2% TOPICAL OINTMENT FOR DECOLONIZATION NS SCH (21:39)
[2024-09-05] MEDS: PIPERACILLIN/TAZOB 3.375 GM 50 ML IVPB SCH ×2 (03:11→21:05)
[2024-09-05] MEDS: LEVOTHYROXINE 100 MCG, LEVOTHYROXINE 75 MCG PO SCH (06:19)
[2024-09-05 06:54] LABS: BASO % 0.5 % (0-2.0); EOS % 3.1 % (0-4.5); HEMATOCRIT 41.9 % (32.4-45.2); HEMOGLOBIN 13.2 GM/dL (10.7-15.3); LYMPH % 7.6 % (8-40); MCH 25.7 pg (25.7-33.7); MCHC 31.5 g/dl (32.0-36.0); MEAN CELL VOLUME 81.5 fl (80-96); MEAN PLT VOLUME 8.5 fl (7.5-11.1); MONO % 9.8 % (3.8-10.2); PLATELET COUNT 207 10^3/uL (134-434); RBC 5.14 M/mm3 (3.60-5.2); RDW 17.2 % (11.6-15.6); WHITE BLOOD COUNT 7.6 K/mm3 (4.0-10.0)
[2024-09-05] MEDS ORDERED: LEVOTHYROXINE NA 150 MCG TABLET PO SCH (07:00)
[2024-09-05 07:05] LABS: CHLORIDE 98 mmol/L (98-107); SODIUM 140 mmol/L (136-145)
[2024-09-05 07:07] LABS: ALBUMIN 2.9 g/dl (3.4-5.0); BLOOD UREA NITROGEN 13.4 mg/dL (7-18); CALCIUM 8.6 mg/dL (8.5-10.1); CO2 38 mmol/L (21-32); MAGNESIUM 2.1 mg/dL (1.8-2.4)
[2024-09-05 07:08] LABS: GLUCOSE,RANDOM 125 mg/dL (74-106)
[2024-09-05 07:10] LABS: CREATININE 0.9 mg/dL (0.55-1.3); SGOT/AST 19 U/L (15-37); SGPT/ALT 16 U/L (13-61)
[2024-09-05 07:12] LABS: TOT PROT 6.3 g/dl (6.4-8.2)
[2024-09-05 07:13] LABS: ALK PHOS 109 U/L (45-117)
[2024-09-05 07:23] LABS: ANION GAP 4 mmol/L (4-13); POTASSIUM 2.8 mmol/L (3.5-5.1)
[2024-09-05] MEDS: levETIRAcetam 500 MG TABLET (FP) PO SCH ×2 (10:33→21:27)
[2024-09-05] MEDS: metoPROLOL SUCCINATE 25 MG TAB.SR.24H (FP) PO SCH (10:33)
[2024-09-05] MEDS: KCL 10 MEQ IVPB 10 MEQ/100 ML INFUS.BAG IVPB SCH (13:03)
[2024-09-05] MEDS: FUROSEMIDE 40 MG/4 ML INJECTABLE VIAL IVPUSH SCH (14:04)
[2024-09-05] MEDS ORDERED: ALBUTEROL SO4 2.5/IPRATROPIUM 0.5 INH SOL 3 ML VIAL.NEB. NEB PRN (16:55)
[2024-09-05] MEDS ORDERED: PIPERACILLIN/TAZOB 3.375 GM 3.375 GM in DEXTROSE 5%-WATER - 50 ML IVPB SCH (18:00)
[2024-09-05] MEDS: clonazePAM 0.5 MG TABLET PO SCH (18:32)
[2024-09-05] MEDS: QUEtiapine FUMARATE 100 MG TABLET (FP) PO SCH (21:26)
[2024-09-05] MEDS: CYCLOBENZAPRINE HCL 10 MG TABLET (FP) PO SCH (21:27)
[2024-09-05] MEDS: traZODone HCL 50 MG TABLET (FP) PO SCH (21:27)
[2024-09-05] MEDS: PREGABALIN 75 MG CAPSULE PO SCH (21:30)
[2024-09-05] MEDS: ENOXAPARIN NA (PORCINE) 40 MG/0.4 ML DISP.SYRIN SQ SCH (21:30)
[2024-09-05] MEDS: PIPERACILLIN/TAZOB 3.375 GM 3.375 GM in DEXTROSE 5%-WATER - 50 ML IVPB SCH (21:38)
[2024-09-05] MEDS ORDERED: CHLORHEXIDINE GLUCONATE 4% CLEANSER FOR DECOLONIZATION TP SCH (22:00)
[2024-09-05] MEDS ORDERED: MUPIROCIN 2% TOPICAL OINTMENT FOR DECOLONIZATION NS SCH (22:00)
[2024-09-06] MEDS: FUROSEMIDE 40 MG/4 ML INJECTABLE VIAL IVPUSH SCH (06:29)
[2024-09-06] MEDS: LEVOTHYROXINE 100 MCG, LEVOTHYROXINE 75 MCG PO SCH (06:31)
[2024-09-06] MEDS ORDERED: POTASSIUM CHLORIDE TABS 10 MEQ TABLET.ER (FP) PO SCH (10:00)
[2024-09-06] MEDS: metoPROLOL SUCCINATE 25 MG TAB.SR.24H (FP) PO SCH (10:34)
[2024-09-06] MEDS: POTASSIUM CHLORIDE TABS 10 MEQ TABLET.ER (FP) PO ONE (10:47)
[2024-09-06] MEDS: POTASSIUM CHLORIDE TABS 10 MEQ TABLET.ER (FP) PO SCH (10:52)
[2024-09-06] MEDS: POTASSIUM CHLORIDE ORAL LIQUID 20 MEQ/15 ML PO SCH (10:53)
[2024-09-06] MEDS: CEFTRIAXONE 1 G/50 ML PREMIX 50 ML IVPB SCH (15:27)
[2024-09-06] MEDS: ACETAMINOPHEN 500 MG TABLET (FP) PO PRN (21:39)
[2024-09-06] MEDS: MELATONIN 5 MG TABLETS PO PRN (21:41)
[2024-09-06] MEDS: DOXYCYCLINE INJECTION 100 MG in DEXTROSE 5%-WATER 100 ML IVPB SCH (21:42)
[2024-09-07 06:04] VITALS: TEMP 97.7
[2024-09-07 06:51] LABS: BASO % 0.7 % (0-2.0); EOS % 4.9 % (0-4.5); HEMOGLOBIN 13.4 GM/dL (10.7-15.3); LYMPH % 17.7 % (8-40); MCH 25.4 pg (25.7-33.7); MCHC 31.8 g/dl (32.0-36.0); MEAN PLT VOLUME 8.1 fl (7.5-11.1); MONO % 12.6 % (3.8-10.2); NEUT % 64.1 % (42.8-82.8); PLATELET COUNT 212 10^3/uL (134-434); RBC 5.25 M/mm3 (3.60-5.2); RDW 16.8 % (11.6-15.6)
[2024-09-07 06:59] LABS: POTASSIUM 3.5 mmol/L (3.5-5.1)
[2024-09-07 07:00] LABS: CALCIUM 9.3 mg/dL (8.5-10.1)
[2024-09-07 07:01] LABS: MAGNESIUM 2.1 mg/dL (1.8-2.4)
[2024-09-07 07:04] LABS: PHOSPHOROUS 3.7 mg/dL (2.5-4.9)
[2024-09-07 07:05] LABS: CREATININE 0.6 mg/dL (0.55-1.3)
[2024-09-07 07:06] LABS: BILIRUBIN,TOTAL 0.7 mg/dL (0.2-1); TOT PROT 6.4 g/dl (6.4-8.2)
[2024-09-07] MEDS: FUROSEMIDE 40 MG/4 ML INJECTABLE VIAL IVPUSH SCH (10:38)
[2024-09-07] MEDS: metFORMIN HCL 500 MG TABLET (FP) PO SCH (10:38)
[2024-09-07] MEDS: lamoTRIgine 100 MG TABLET PO SCH (10:38)
[2024-09-07] MEDS: QUEtiapine FUMARATE 100 MG TABLET (FP) PO SCH (10:39)
[2024-09-07] MEDS: CITALOPRAM HYDROBROMIDE 20 MG TABLET PO SCH (16:53)
[2024-09-07] MEDS: ASPIRIN COATED 81 MG TABLET.EC PO SCH (16:53)
[2024-09-07] MEDS: ATORVASTATIN CA 40 MG TABLET (FP) PO SCH (21:54)
[2024-09-07] MEDS ORDERED: QUEtiapine FUMARATE 200 MG TABLET PO SCH (22:00)
[2024-09-08 14:41] VITALS: BP 133/66; PULSE 87; RESP 18
== END 2024-09-08 16:41 | DRG 189 ==
LOC: JER 10:28 → JERBED 14:10 → JICU 20:13 → J4S 09-05 15:05
PROVIDERS: ADMIT Internal Medicine; ATTEND Internal Medicine
PROC: 0HDRXZZ Extraction of Toe Nail, External Approach (ICD-10-PCS; principal; 2024-09-06)
DX: J96.21 Acute and chronic respiratory failure with hypoxia (principal); I50.33 Acute on chronic diastolic (congestive) heart failure; J18.9 Pneumonia, unspecified organism; G93.41 Metabolic encephalopathy; J44.0 Chronic obstructive pulmonary disease with (acute) lower respiratory infection; Z68.41 Body mass index [BMI] 40.0-44.9, adult; R62.7 Adult failure to thrive; E66.01 Morbid (severe) obesity due to excess calories; E03.9 Hypothyroidism, unspecified; F20.9 Schizophrenia, unspecified; E11.9 Type 2 diabetes mellitus without complications; I11.0 Hypertensive heart disease with heart failure; E87.6 Hypokalemia; G40.909 Epilepsy, unspecified, not intractable, without status epilepticus; L60.1 Onycholysis
CPT/HCPCS: 0241U-QW; 36415; 36600; 71045-TC-FY; 73630-TC-LT; 80053; 81003; 82803; 82962; 83605; 83735; 83880; 84100; 84439; 84443; 84484; 85025; 85610; 85730; 86850; 86900; 86901; 87040; 87086; 87481; 93005; 93010; 93306-TC; 94660; 99291

== ENCOUNTER 2024-09-19 16:08 | Inpatient (IN) | payer OTHER ==
[2024-09-19] MEDS ORDERED: NALOXONE HCL 0.4 MG/ML VIAL ONE ×4 (16:23→16:34)
[2024-09-19] MEDS: NALOXONE HCL 0.4 MG/ML VIAL IVPUSH SCH (16:23)
[2024-09-19] MEDS ORDERED: RAPID SEQUENCE INTUBATION KIT NR ONE (16:25)
[2024-09-19] MEDS ORDERED: ALBUTEROL SO4 2.5/IPRATROPIUM 0.5 INH SOL 3 ML VIAL.NEB. NEB ONE (16:34)
[2024-09-19] MEDS ORDERED: MAGNESIUM SULFATE IN WATER 2 GM/50 ML IVPB IVPB ONE (16:35)
[2024-09-19] MEDS ORDERED: methylPREDNISolone NA SUCC 125 MG/2 ML VIAL ONE (16:35)
[2024-09-19] MEDS ORDERED: ROCURONIUM BROMIDE 50 MG/5 ML SYRINGE ONE ×2 (16:42→17:14)
[2024-09-19] MEDS ORDERED: ETOMIDATE 20 MG/10 ML VIAL IVPUSH ONE (16:42)
[2024-09-19] MEDS: SODIUM CHLORIDE 0.9% 500 ML INFUS.BAG IV ONE ×2 (16:44→18:35)
[2024-09-19] MEDS: ROCURONIUM BROMIDE 50 MG/5 ML VIAL IV ONE ×2 (16:51→18:52)
[2024-09-19] MEDS: HYDROCORTISONE SOD SUCCINATE 100 MG/2 ML VIAL IVPUSH ONE (17:00)
[2024-09-19] MEDS: methylPREDNISolone NA SUCC 125 MG/2 ML VIAL IVPUSH ONE (17:11)
[2024-09-19] MEDS: MAGNESIUM SULF 50% (8.12 MEQ/2 ML-1 GM VIAL) IVPB ONE (17:12)
[2024-09-19] MEDS ORDERED: NOREPINEPHRINE 0.9 % NACL 8 MG/250 ML BAG IVPB ONE (17:14)
[2024-09-19] MEDS: ETOMIDATE 40 MG/20 ML VIAL IVPUSH ONE ×2 (17:16)
[2024-09-19] MEDS: ALBUTEROL SO4 2.5/IPRATROPIUM 0.5 INH SOL 3 ML VIAL.NEB. NEB SCH (17:16)
[2024-09-19] MEDS ORDERED: HYDROCORTISONE SOD SUCCINATE 100 MG/2 ML VIAL ONE (17:17)
[2024-09-19 17:22] LABS: VENOUS BASE EXCESS 4.3 mmol/L (-2-2); VENOUS O2 SATURATION 60.4 % (70-80); VENOUS PH 7.246 (7.310-7.410)
[2024-09-19 17:29] LABS: BASO % 0.5 % (0-2.0); EOS % 1.4 % (0-4.5); HEMATOCRIT 43.3 % (32.4-45.2); LYMPH % 16.9 % (8-40); MCHC 32.2 g/dl (32.0-36.0); MEAN CELL VOLUME 80.6 fl (80-96); MEAN PLT VOLUME 8.5 fl (7.5-11.1); MONO % 9.3 % (3.8-10.2); NEUT % 71.9 % (42.8-82.8); PLATELET COUNT 295 10^3/uL (134-434); RBC 5.37 M/mm3 (3.60-5.2); RDW 17.7 % (11.6-15.6); WHITE BLOOD COUNT 9.5 K/mm3 (4.0-10.0)
[2024-09-19] MEDS: NOREPINEPHRINE 0.9 % NACL 8 MG/250 ML BAG IVPB SCH (17:30)
[2024-09-19 17:40] LABS: POTASSIUM 4.2 mmol/L (3.5-5.1)
[2024-09-19 17:42] LABS: CALCIUM 8.8 mg/dL (8.5-10.1)
[2024-09-19 17:43] LABS: BLOOD UREA NITROGEN 30.5 mg/dL (7-18)
[2024-09-19 17:46] LABS: CREATININE 4.3 mg/dL (0.55-1.3)
[2024-09-19 17:47] LABS: BILIRUBIN,TOTAL 0.5 mg/dL (0.2-1); TOT PROT 6.1 g/dl (6.4-8.2)
[2024-09-19 17:48] LABS: VENOUS PCO2 81.7 mmHg (38-52)
[2024-09-19 18:16] LABS: INR 1.01 (0.83-1.09); PROTHROMBIN TIME (PATIENT) 11.6 SEC (9.7-13.0)
[2024-09-19 18:19] LABS: ACTIVATED PTT 28.8 SECONDS (25.2-36.5)
[2024-09-19] MEDS: NALOXONE HCL 2 MG in DEXTROSE 5%-WATER - 495 ML IV SCH (18:27)
[2024-09-19 18:55] LABS: PH,URINE 5.5 (5.0-8.0); URINE APPEARANCE CLEAR; URINE BILIRUBIN NEGATIVE (NEGATIVE); URINE COLOR YELLOW; URINE GLUCOSE (UA) NEGATIVE (NEGATIVE); URINE KETONE NEGATIVE (NEGATIVE); URINE LEUK ESTERASE NEGATIVE (NEGATIVE); URINE NITRITE NEGATIVE (NEGATIVE); URINE PROTEIN TRACE (NEGATIVE); URINE UROBILINOGEN 0.2 mg/dL (0.2-1.0)
[2024-09-19] MEDS ORDERED: PIPERACILLIN/TAZOB 4.5 GM 4.5 GM/100 ML BAG IVPB ONE (19:30)
[2024-09-19] MEDS ORDERED: VANCOMYCIN 1 GRAM (PRE-DOCKED) 1,000 MG/250 ML BAG IVPB ONE (19:31)
[2024-09-19] MEDS: PIPERACILLIN/TAZOB 4.5 GM 4.5 GM in DEXTROSE 5%-WATER 100 ML IVPB ONE (19:36)
[2024-09-19] MEDS ORDERED: PROPOFOL 1,000,000 MCG/100 ML VIAL ONE (20:00)
[2024-09-19] MEDS: VANCOMYCIN 1,000 MG in DEXTROSE 5%-WATER - 250 ML IVPB ONE (20:04)
[2024-09-19] MEDS: PROPOFOL 1,000,000 MCG/100 ML VIAL IVPB SCH (20:10)
[2024-09-19 20:11] LABS: LACTIC ACID 2.5 mmol/L (0.4-2.0)
[2024-09-19] MEDS ORDERED: ALBUTEROL SO4 0.083% IH SOL 2.5 MG/3 ML VIAL.NEB. NEB PRN (21:03)
[2024-09-19] MEDS: methylPREDNISolone NA SUCC 40 MG/1 ML VIAL IVPUSH SCH (22:07)
[2024-09-19] MEDS: HEPARIN NA (PORCINE) 5,000 UNITS/ML 1ML VIAL SQ SCH (22:07)
[2024-09-19] MEDS: CHLORHEXIDINE GLUCONATE 4% CLEANSER FOR DECOLONIZATION TP SCH (22:09)
[2024-09-19] MEDS: MUPIROCIN 2% TOPICAL OINTMENT FOR DECOLONIZATION NS SCH (22:46)
[2024-09-20 06:29] LABS: ARTERIAL BLD GAS O2 SATURATION 77.2 % (95-98); ARTERIAL BLOOD GAS BASE EXCESS 3.5 mmol/L (-2-2); ARTERIAL BLOOD GAS pH 7.457 (7.350-7.450)
[2024-09-20 06:30] LABS: ALLENS TEST POSITIVE; VENT MODE A/C; VENT RATE 20
[2024-09-20 06:31] LABS: ARTERIAL BLOOD GAS PO2 39.5 mmHg (80-100)
[2024-09-20 07:47] LABS: BASO % 0.1 % (0-2.0); HEMATOCRIT 42.9 % (32.4-45.2); HEMOGLOBIN 13.8 GM/dL (10.7-15.3); LYMPH % 8.3 % (8-40); MCH 25.8 pg (25.7-33.7); MCHC 32.1 g/dl (32.0-36.0); MEAN CELL VOLUME 80.2 fl (80-96); MEAN PLT VOLUME 8.7 fl (7.5-11.1); NEUT % 89.6 % (42.8-82.8); PLATELET COUNT 296 10^3/uL (134-434); RBC 5.35 M/mm3 (3.60-5.2); WHITE BLOOD COUNT 7.3 K/mm3 (4.0-10.0)
[2024-09-20 08:08] LABS: CHLORIDE 100 mmol/L (98-107); POTASSIUM 3.7 mmol/L (3.5-5.1); SODIUM 140 mmol/L (136-145)
[2024-09-20 08:20] LABS: ALBUMIN 2.8 g/dl (3.4-5.0); BILIRUBIN,TOTAL 0.6 mg/dL (0.2-1); CALCIUM 9.3 mg/dL (8.5-10.1)
[2024-09-20 08:21] LABS: ALK PHOS 114 U/L (45-117); BLOOD UREA NITROGEN 22.2 mg/dL (7-18); SGPT/ALT 18 U/L (13-61); TOT PROT 5.8 g/dl (6.4-8.2)
[2024-09-20 08:22] LABS: GLUCOSE,RANDOM 186 mg/dL (74-106)
[2024-09-20 08:23] LABS: ANION GAP 11 mmol/L (4-13); CO2 29 mmol/L (21-32); CREATININE 1.6 mg/dL (0.55-1.3); MAGNESIUM 2.3 mg/dL (1.8-2.4); PHOSPHOROUS 2.2 mg/dL (2.5-4.9); SGOT/AST 14 U/L (15-37)
[2024-09-20 08:26] LABS: INR 1.03 (0.83-1.09); PROTHROMBIN TIME (PATIENT) 11.8 SEC (9.7-13.0)
[2024-09-20 08:31] LABS: N-TERMINAL BNP 1343.9 pg/ml (5-125)
[2024-09-20] MEDS: PIPERACILLIN/TAZOB 4.5 GM 4.5 GM/100 ML BAG IVPB SCH (09:05)
[2024-09-20] MEDS: PANTOPRAZOLE SODIUM 40 MG VIAL IVPUSH SCH (10:17)
[2024-09-20] MEDS: FUROSEMIDE 40 MG/4 ML INJECTABLE VIAL IVPUSH ONE (12:01)
[2024-09-20] MEDS: levETIRAcetam 500 MG/5 ML INJECTION VIAL IVPB SCH (12:01)
[2024-09-20] MEDS: POTASSIUM PHOSPHATE 30 MM in SODIUM CHLORIDE 250 ML IVPB ONE (14:27)
[2024-09-20] MEDS: ALBUTEROL SO4 2.5/IPRATROPIUM 0.5 INH SOL 3 ML VIAL.NEB. NEB SCH (15:16)
[2024-09-20] MEDS: INSULIN ASPART SLIDING SCALE (NOVOLOG) 1 VIAL SQ SCH (19:14)
[2024-09-20] MEDS: LACTATED RINGERS SOLUTION 1,000 ML/1,000 ML INFUS.BAG IV STA (19:38)
[2024-09-20] MEDS: PREGABALIN 75 MG CAPSULE PO SCH (21:20)
[2024-09-20] MEDS: lamoTRIgine 100 MG TABLET PO ONE (21:21)
[2024-09-20] MEDS: levETIRAcetam 500 MG TABLET (FP) PO SCH (21:21)
[2024-09-20] MEDS: ATORVASTATIN CA 40 MG TABLET (FP) PO SCH (21:21)
[2024-09-20] MEDS: QUEtiapine FUMARATE 100 MG TABLET (FP) PO SCH (21:24)
[2024-09-20] MEDS ORDERED: VALPROATE SODIUM INJECTION 500 MG in DEXTROSE 5%-WATER - 100 ML IVPB SCH (22:00)
[2024-09-20] MEDS ORDERED: VALPROATE SODIUM 500 MG/5 ML VIAL IVPB SCH (22:00)
[2024-09-20] MEDS ORDERED: QUEtiapine FUMARATE 100 MG TABLET (FP) PO SCH (22:46)
[2024-09-21 03:53] LABS: COCAINE, UR NEGATIVE (NEGATIVE); METHADONE, UR NEGATIVE (NEGATIVE); OPIATES, URI NEGATIVE (NEGATIVE); PHENCYCLIDINE,URINE NEGATIVE (NEGATIVE); URINE BARBITURATES NEGATIVE (NEGATIVE); URINE BENZODIAZEPINES NEGATIVE (NEGATIVE)
[2024-09-21 03:57] LABS: URINE AMPHETAMINES NEGATIVE (NEGATIVE)
[2024-09-21] MEDS: ASPIRIN COATED 81 MG TABLET.EC PO SCH (06:18)
[2024-09-21] MEDS: LEVOTHYROXINE NA 150 MCG TABLET PO SCH (06:18)
[2024-09-21] MEDS: CITALOPRAM HYDROBROMIDE 20 MG TABLET PO SCH (06:19)
[2024-09-21] MEDS: metoPROLOL SUCCINATE 25 MG TAB.SR.24H (FP) PO SCH (09:46)
[2024-09-21] MEDS: lamoTRIgine 100 MG TABLET PO SCH (11:36)
[2024-09-21] MEDS: clonazePAM 0.5 MG TABLET PO SCH ×2 (14:23→21:23)
[2024-09-21] MEDS: FUROSEMIDE 40 MG/4 ML INJECTABLE VIAL IVPUSH SCH (14:24)
[2024-09-21] MEDS ORDERED: ALBUTEROL SO4 0.083% IH SOL 2.5 MG/3 ML VIAL.NEB. NEB PRN (17:07)
[2024-09-21] MEDS: PIPERACILLIN/TAZOB 2.25 GM 2.25 GM/50 ML BAG IVPB SCH (18:11)
[2024-09-21] MEDS: ALBUTEROL SO4 2.5/IPRATROPIUM 0.5 INH SOL 3 ML VIAL.NEB. NEB SCH (20:30)
[2024-09-21] MEDS: HEPARIN NA (PORCINE) 5,000 UNITS/ML 1ML VIAL SQ SCH (21:22)
[2024-09-21] MEDS: PREGABALIN 75 MG CAPSULE PO SCH (21:23)
[2024-09-21] MEDS: levETIRAcetam 500 MG TABLET (FP) PO SCH (21:23)
[2024-09-21] MEDS: ATORVASTATIN CA 40 MG TABLET (FP) PO SCH (21:24)
[2024-09-21] MEDS: INSULIN ASPART SLIDING SCALE (NOVOLOG) 1 VIAL SQ SCH (21:24)
[2024-09-21] MEDS: QUEtiapine FUMARATE 300 MG TABLET PO SCH (21:45)
[2024-09-22] MEDS: LEVOTHYROXINE 75 MCG, LEVOTHYROXINE 100 MCG PO SCH (06:51)
[2024-09-22] MEDS: ASPIRIN COATED 81 MG TABLET.EC PO SCH (06:52)
[2024-09-22] MEDS: CITALOPRAM HYDROBROMIDE 20 MG TABLET PO SCH (06:52)
[2024-09-22] MEDS ORDERED: LEVOTHYROXINE 75 MCG, LEVOTHYROXINE 100 MCG PO SCH (07:00)
[2024-09-22] MEDS: lamoTRIgine 100 MG TABLET PO SCH (09:06)
[2024-09-22] MEDS: PANTOPRAZOLE SODIUM 40 MG VIAL IVPUSH SCH (09:50)
[2024-09-22] MEDS: FUROSEMIDE 40 MG/4 ML INJECTABLE VIAL IVPUSH SCH (09:50)
[2024-09-22] MEDS: methylPREDNISolone NA SUCC 40 MG/1 ML VIAL IVPUSH SCH (09:51)
[2024-09-22] MEDS: metoPROLOL SUCCINATE 25 MG TAB.SR.24H (FP) PO SCH (09:51)
[2024-09-22] MEDS ORDERED: methylPREDNISolone NA SUCC 40 MG/1 ML VIAL IVPUSH SCH (10:00)
[2024-09-22 11:57] LABS: BASO % 0.1 % (0-2.0); EOS % 0.3 % (0-4.5); HEMATOCRIT 48.1 % (32.4-45.2); HEMOGLOBIN 15.1 GM/dL (10.7-15.3); LYMPH % 13.1 % (8-40); MCH 25.7 pg (25.7-33.7); MCHC 31.5 g/dl (32.0-36.0); MEAN CELL VOLUME 81.7 fl (80-96); MEAN PLT VOLUME 8.6 fl (7.5-11.1); MONO % 7.4 % (3.8-10.2); NEUT % 79.1 % (42.8-82.8); PLATELET COUNT 259 10^3/uL (134-434); RBC 5.89 M/mm3 (3.60-5.2); RDW 17.6 % (11.6-15.6); WHITE BLOOD COUNT 9.6 K/mm3 (4.0-10.0)
[2024-09-22 12:21] LABS: CALCIUM 9.7 mg/dL (8.5-10.1)
[2024-09-22 12:22] LABS: BLOOD UREA NITROGEN 19.4 mg/dL (7-18)
[2024-09-22 12:23] LABS: MAGNESIUM 1.9 mg/dL (1.8-2.4)
[2024-09-22 12:25] LABS: PHOSPHOROUS 2.6 mg/dL (2.5-4.9)
[2024-09-22 12:31] LABS: ALBUMIN 3.4 g/dl (3.4-5.0)
[2024-09-22] MEDS: OLANZapine 5 MG TABLET PO ONE (15:06)
[2024-09-22] MEDS: CEFTRIAXONE 1 G/50 ML PREMIX 50 ML IVPB SCH (15:06)
[2024-09-22] MEDS: metFORMIN HCL 500 MG TABLET (FP) PO SCH (17:01)
[2024-09-22] MEDS: OLANZapine 10 MG TABLET PO SCH (21:49)
[2024-09-22] MEDS ORDERED: OLANZapine 2.5 MG TABLET PO SCH (22:00)
[2024-09-22] MEDS: clonazePAM 0.5 MG TABLET PO PRN (23:45)
[2024-09-23 08:26] LABS: BASO % 0.3 % (0-2.0); EOS % 0.8 % (0-4.5); HEMATOCRIT 42.7 % (32.4-45.2); HEMOGLOBIN 13.9 GM/dL (10.7-15.3); LYMPH % 20.5 % (8-40); MCH 26.3 pg (25.7-33.7); MCHC 32.5 g/dl (32.0-36.0); MEAN CELL VOLUME 80.9 fl (80-96); MEAN PLT VOLUME 8.6 fl (7.5-11.1); MONO % 9.2 % (3.8-10.2); NEUT % 69.2 % (42.8-82.8); PLATELET COUNT 262 10^3/uL (134-434); RBC 5.28 M/mm3 (3.60-5.2); RDW 17.6 % (11.6-15.6); WHITE BLOOD COUNT 9.2 K/mm3 (4.0-10.0)
[2024-09-23 08:50] LABS: POTASSIUM 3.7 mmol/L (3.5-5.1)
[2024-09-23 08:53] LABS: CALCIUM 9.1 mg/dL (8.5-10.1)
[2024-09-23 08:54] LABS: BLOOD UREA NITROGEN 16.2 mg/dL (7-18); MAGNESIUM 1.9 mg/dL (1.8-2.4)
[2024-09-23 08:58] LABS: BILIRUBIN,TOTAL 0.4 mg/dL (0.2-1)
[2024-09-23] MEDS: PANTOPRAZOLE 40 MG TABLET PO SCH (09:52)
[2024-09-23] MEDS: CITALOPRAM HYDROBROMIDE 20 MG TABLET PO SCH (16:26)
[2024-09-23] MEDS: clonazePAM 0.5 MG TABLET PO PRN (16:26)
[2024-09-23] MEDS: QUEtiapine FUMARATE 300 MG TABLET PO SCH (21:15)
[2024-09-24 06:53] LABS: BASO % 0.4 % (0-2.0); EOS % 1.9 % (0-4.5); HEMATOCRIT 43.1 % (32.4-45.2); HEMOGLOBIN 13.4 GM/dL (10.7-15.3); LYMPH % 20.3 % (8-40); MCH 25.5 pg (25.7-33.7); MCHC 31.1 g/dl (32.0-36.0); MEAN CELL VOLUME 81.8 fl (80-96); MEAN PLT VOLUME 8.4 fl (7.5-11.1); MONO % 8.5 % (3.8-10.2); NEUT % 68.9 % (42.8-82.8); PLATELET COUNT 214 10^3/uL (134-434); RBC 5.27 M/mm3 (3.60-5.2); RDW 17.1 % (11.6-15.6); WHITE BLOOD COUNT 9.5 K/mm3 (4.0-10.0)
[2024-09-24 07:19] LABS: CALCIUM 8.8 mg/dL (8.5-10.1)
[2024-09-24 07:20] LABS: ALBUMIN 2.8 g/dl (3.4-5.0); BLOOD UREA NITROGEN 12.1 mg/dL (7-18)
[2024-09-24 07:23] LABS: CREATININE 0.8 mg/dL (0.55-1.3)
[2024-09-24 07:24] LABS: BILIRUBIN,TOTAL 0.6 mg/dL (0.2-1); TOT PROT 5.6 g/dl (6.4-8.2)
[2024-09-24] MEDS: PIPERACILLIN/TAZOB 4.5 GM 4.5 GM in DEXTROSE 5%-WATER 100 ML IVPB SCH (07:31)
[2024-09-24] MEDS: TAMSULOSIN HCL 0.4 MG CAP PO SCH (08:13)
[2024-09-24] MEDS: DOCUSATE SODIUM 100 MG CAPSULE (FP) PO SCH (13:37)
[2024-09-24] MEDS: POLYETHYLENE GLYCOL (HEALTHYLAX) 3350 17 GM PACKET PO SCH (13:37)
[2024-09-24 17:53] LABS: EPI CELLS 18 /uL (0-25.1); HYALINE CASTS 0 /uL (0-3.1); URINE APPEARANCE CLEAR; URINE BACTERIA 18 /uL (0-1359); URINE BILIRUBIN NEGATIVE (NEGATIVE); URINE COLOR YELLOW; URINE GLUCOSE (UA) NEGATIVE (NEGATIVE); URINE KETONE NEGATIVE (NEGATIVE); URINE LEUK ESTERASE 2+ (NEGATIVE); URINE NITRITE NEGATIVE (NEGATIVE); URINE PROTEIN NEGATIVE (NEGATIVE); URINE RBC 15 /uL (0-23.9); URINE UROBILINOGEN 0.2 mg/dL (0.2-1.0); URINE WBC 76 /uL (0-25.8)
[2024-09-25 16:12] VITALS: BMI 40.7
[2024-09-25] MEDS: MAGNESIUM HYDROX 2400MG/30ML ORAL SUSPENSION 30 ML CUP PO ONE (16:31)
[2024-09-26] MEDS: clonazePAM 0.5 MG TABLET PO PRN (20:00)
[2024-09-26] MEDS: SENNOSIDES 8.8 MG/5 ML SYRUP PO ONE (21:38)
[2024-09-27 08:37] LABS: BASO % 0.3 % (0-2.0); EOS % 1.6 % (0-4.5); HEMATOCRIT 42.3 % (32.4-45.2); HEMOGLOBIN 13.2 GM/dL (10.7-15.3); LYMPH % 18.8 % (8-40); MCH 25.6 pg (25.7-33.7); MCHC 31.2 g/dl (32.0-36.0); MEAN CELL VOLUME 82.1 fl (80-96); MEAN PLT VOLUME 8.9 fl (7.5-11.1); MONO % 7.1 % (3.8-10.2); NEUT % 72.2 % (42.8-82.8); PLATELET COUNT 189 10^3/uL (134-434); RBC 5.16 M/mm3 (3.60-5.2); RDW 17.2 % (11.6-15.6); WHITE BLOOD COUNT 10.6 K/mm3 (4.0-10.0)
[2024-09-27 09:13] LABS: CALCIUM 8.8 mg/dL (8.5-10.1)
[2024-09-27 09:16] LABS: CREATININE 0.7 mg/dL (0.55-1.3)
[2024-09-27 09:17] LABS: BILIRUBIN,TOTAL 0.4 mg/dL (0.2-1)
[2024-09-27] MEDS: predniSONE 20 MG TABLET (UD) PO SCH (10:08)
[2024-09-28 06:29] LABS: BASO % 0.7 % (0-2.0); HEMATOCRIT 41.9 % (32.4-45.2); HEMOGLOBIN 13.3 GM/dL (10.7-15.3); LYMPH % 20.2 % (8-40); MCH 25.9 pg (25.7-33.7); MCHC 31.7 g/dl (32.0-36.0); MEAN CELL VOLUME 81.5 fl (80-96); MEAN PLT VOLUME 8.4 fl (7.5-11.1); NEUT % 69.1 % (42.8-82.8); PLATELET COUNT 184 10^3/uL (134-434); RBC 5.14 M/mm3 (3.60-5.2); RDW 17.1 % (11.6-15.6); WHITE BLOOD COUNT 10.3 K/mm3 (4.0-10.0)
[2024-09-28 06:46] LABS: POTASSIUM 3.6 mmol/L (3.5-5.1)
[2024-09-28 06:51] LABS: BLOOD UREA NITROGEN 10.6 mg/dL (7-18)
[2024-09-28 06:52] LABS: ALBUMIN 3.1 g/dl (3.4-5.0)
[2024-09-28 06:55] LABS: CREATININE 0.7 mg/dL (0.55-1.3)
[2024-09-28 06:56] LABS: BILIRUBIN,TOTAL 0.5 mg/dL (0.2-1); TOT PROT 6.2 g/dl (6.4-8.2)
[2024-09-29 08:10] LABS: BASO % 0.5 % (0-2.0); EOS % 1.9 % (0-4.5); HEMATOCRIT 43.7 % (32.4-45.2); HEMOGLOBIN 13.5 GM/dL (10.7-15.3); LYMPH % 19.5 % (8-40); MCH 25.6 pg (25.7-33.7); MEAN CELL VOLUME 82.8 fl (80-96); MEAN PLT VOLUME 8.6 fl (7.5-11.1); MONO % 7.7 % (3.8-10.2); NEUT % 70.4 % (42.8-82.8); PLATELET COUNT 178 10^3/uL (134-434); RBC 5.27 M/mm3 (3.60-5.2); RDW 17.1 % (11.6-15.6); WHITE BLOOD COUNT 10.6 K/mm3 (4.0-10.0)
[2024-09-29 08:37] LABS: POTASSIUM 3.5 mmol/L (3.5-5.1)
[2024-09-29 08:40] LABS: CALCIUM 9.2 mg/dL (8.5-10.1)
[2024-09-29 08:42] LABS: ALBUMIN 3.1 g/dl (3.4-5.0); BLOOD UREA NITROGEN 12.8 mg/dL (7-18); MAGNESIUM 2.1 mg/dL (1.8-2.4)
[2024-09-29 08:44] LABS: CREATININE 0.8 mg/dL (0.55-1.3)
[2024-09-29 08:46] LABS: BILIRUBIN,TOTAL 0.5 mg/dL (0.2-1); TOT PROT 6.1 g/dl (6.4-8.2)
[2024-09-29] MEDS: FUROSEMIDE 40 MG TABLET (FP) PO SCH (09:04)
[2024-09-29] MEDS ORDERED: diazePAM 2 MG TABLET PO ONE (09:15)
[2024-09-29] MEDS: POTASSIUM CHLORIDE TABS 20 MEQ TABLET.ER (FP) PO ONE (09:16)
[2024-09-29 11:02] VITALS: RESP 18
[2024-09-29 14:25] VITALS: BP 126/82; PULSE 77; TEMP 97.9
[2024-09-29] MEDS: TAMSULOSIN HCL 0.4 MG CAP PO ONE (15:35)
[2024-09-29] MEDS: AMOX TR/POT CLAV 875MG/125MG TABLETS (FP) PO SCH (16:34)
[2024-09-29] MEDS: diazePAM 2 MG TABLET PO ONE (17:34)
[2024-09-30] MEDS ORDERED: TAMSULOSIN HCL 0.4 MG CAP PO SCH (08:30)
== END 2024-09-29 20:41 | DRG 871 ==
LOC: JER 16:08 → JERBED 17:25 → JICU 20:43 → J7W 09-21 17:04
PROVIDERS: ADMIT Internal Medicine Pulmonary Disease; ATTEND Nurse Practitioner Acute Care
PROC: 5A1935Z Respiratory Ventilation, Less than 24 Consecutive Hours (ICD-10-PCS; principal; 2024-09-19)
PROC: 0BH17EZ Insertion of Endotracheal Airway into Trachea, Via Natural or Artificial Opening (ICD-10-PCS; 2024-09-19)
PROC: 0HDRXZZ Extraction of Toe Nail, External Approach (ICD-10-PCS; 2024-09-24)
DX: A41.9 Sepsis, unspecified organism (principal); I50.33 Acute on chronic diastolic (congestive) heart failure; J96.22 Acute and chronic respiratory failure with hypercapnia; R65.21 Severe sepsis with septic shock; J96.21 Acute and chronic respiratory failure with hypoxia; J44.1 Chronic obstructive pulmonary disease with (acute) exacerbation; E87.20 Acidosis, unspecified; Z68.41 Body mass index [BMI] 40.0-44.9, adult; N17.9 Acute kidney failure, unspecified; I24.89 Other forms of acute ischemic heart disease; E66.01 Morbid (severe) obesity due to excess calories; B35.1 Tinea unguium; R33.9 Retention of urine, unspecified; F20.9 Schizophrenia, unspecified
CPT/HCPCS: 0241U-QW; 36415; 36600; 70450-TC; 70551-TC; 71045-TC-FY; 76775-TC; 80053; 80175; 80177; 80307; 81003; 82550; 82553; 82803; 82962; 83036; 83605; 83735; 83880; 84100; 84439; 84443; 84484; 85025; 85610; 85730; 86850; 86900; 86901; 87040; 87070; 87086; 87186; 87205; 87481; 87635; 93005; 93010; 94002; 94010; 94640; 97116-GP; 97162-GP; 99291; G0480; J1644

== ENCOUNTER 2025-04-30 15:58 | Inpatient (IN) | payer OTHER ==
[2025-04-30 17:55] LABS: ABSOLUTE IMMATURE GRANULOCYTES 0.05 x10^3/uL (0.0-0.031); BASOPHILS # 0.04 x10^3/uL (0.01-0.08); EOSINOPHIL % 1.1 % (0.7-5.8); EOSINOPHILS # 0.13 x10^3/uL (0.04-0.36); MCHC 30.4 g/dl (32.2-35.5); MEAN CELL VOLUME 81.6 fl (79.4-94.8); MEAN PLT VOLUME 9.9 fl (9.4-12.3); MONOCYTE # 0.75 x10^3/uL (0.24-0.86); MONOCYTE % 6.2 % (4.7-12.5); RDW 15.2 % (12.4-16.4)
[2025-04-30 18:04] LABS: INR 1.49 (0.83-1.09); PROTHROMBIN TIME (PATIENT) 16.2 SEC (9.7-13.0)
[2025-04-30 18:07] LABS: ACTIVATED PTT 34.7 SECONDS (25.2-36.5)
[2025-04-30 18:17] LABS: CO2 29.0 mmol/L (21-32); GLUCOSE,RANDOM 108.0 mg/dL (74-106)
[2025-04-30 18:20] LABS: CREATININE 0.8 mg/dL (0.55-1.3); SGOT/AST 15.0 U/L (15-37); SGPT/ALT 21.0 U/L (13-61)
[2025-04-30 18:22] LABS: TOT PROT 6.9 g/dl (6.4-8.2)
[2025-04-30 18:23] LABS: ALK PHOS 120.0 U/L (45-117)
[2025-04-30 22:54] LABS: EPI CELLS 19 /uL (0-25.1); HYALINE CASTS 0 /uL (0-3.1); URINE APPEARANCE CLOUDY; URINE BACTERIA 6444 /uL (0-1359); URINE BILIRUBIN NEGATIVE (NEGATIVE); URINE COLOR YELLOW; URINE GLUCOSE (UA) NEGATIVE (NEGATIVE); URINE KETONE NEGATIVE (NEGATIVE); URINE LEUK ESTERASE 3+ (NEGATIVE); URINE NITRITE POSITIVE (NEGATIVE); URINE PROTEIN NEGATIVE (NEGATIVE); URINE RBC 22 /uL (0-23.9); URINE UROBILINOGEN 0.2 mg/dL (0.2-1.0); URINE WBC 1172 /uL (0-25.8)
[2025-04-30] MEDS ORDERED: BACITRACIN 0.9 GM PACKET ONE (23:04)
[2025-04-30] MEDS ORDERED: LINEZOLID 600 MG PREMIX BAG 600 MG/300 ML BAG IVPB ONE (23:04)
[2025-04-30] MEDS: LINEZOLID 600 MG PREMIX BAG 600 MG in PREMIX 300 IV ONE (23:14)
[2025-05-01 02:45] VITALS: BMI 36.6
[2025-05-01] MEDS ORDERED: ALBUTEROL SO4 HFA INHALER IH PRN ×2 (03:06→16:34)
[2025-05-01] MEDS ORDERED: ALBUTEROL SO4 2.5/IPRATROPIUM 0.5 INH SOL 3 ML VIAL.NEB. NEB PRN (03:06)
[2025-05-01] MEDS ORDERED: SENNOSIDES 8.6MG TABLET (FP) PO PRN (03:06)
[2025-05-01] MEDS: CITALOPRAM HYDROBROMIDE 10 MG TABLET PO SCH (06:08)
[2025-05-01] MEDS: LEVOTHYROXINE 75 MCG, LEVOTHYROXINE 100 MCG PO SCH (06:09)
[2025-05-01] MEDS: ASPIRIN COATED 81 MG TABLET.EC PO SCH (06:09)
[2025-05-01] MEDS: ERTAPENEM SODIUM 1 GM in SODIUM CHLORIDE 50 ML IVPB ONE (06:11)
[2025-05-01] MEDS ORDERED: LEVOTHYROXINE NA 150 MCG TABLET PO SCH (06:30)
[2025-05-01] MEDS: ERTAPENEM SODIUM 1 GM in SODIUM CHLORIDE 50 ML IVPB SCH (06:33)
[2025-05-01 09:09] LABS: MCHC 30.4 g/dl (32.2-35.5); MEAN CELL VOLUME 82.1 fl (79.4-94.8); MEAN PLT VOLUME 10.3 fl (9.4-12.3); RDW 15.1 % (12.4-16.4)
[2025-05-01] MEDS: APIXABAN 5 MG TABLET PO SCH (09:18)
[2025-05-01] MEDS: TAMSULOSIN HCL 0.4 MG CAP PO SCH (09:18)
[2025-05-01] MEDS: levETIRAcetam 500 MG TABLET (FP) PO SCH (09:18)
[2025-05-01] MEDS: PANTOPRAZOLE 20 MG TABLET PO SCH (09:18)
[2025-05-01] MEDS: FUROSEMIDE 40 MG TABLET (FP) PO SCH (09:18)
[2025-05-01 10:00] LABS: CO2 30.0 mmol/L (21-32); GLUCOSE,RANDOM 128.0 mg/dL (74-106)
[2025-05-01] MEDS ORDERED: MEROPENEM 1 GM in DEXTROSE 5%-WATER 100 ML IVPB SCH (10:00)
[2025-05-01] MEDS ORDERED: ERTAPENEM SODIUM 1 GM in SODIUM CHLORIDE 50 ML IVPB SCH (10:00)
[2025-05-01] MEDS ORDERED: ENOXAPARIN NA (PORCINE) 40 MG/0.4 ML DISP.SYRIN SQ SCH (10:00)
[2025-05-01 10:03] LABS: CREATININE 0.6 mg/dL (0.55-1.3); SGOT/AST 14.0 U/L (15-37); SGPT/ALT 20.0 U/L (13-61)
[2025-05-01 10:05] LABS: TOT PROT 6.4 g/dl (6.4-8.2)
[2025-05-01 10:06] LABS: ALK PHOS 117.0 U/L (45-117)
[2025-05-01] MEDS: ACETAMINOPHEN 325 MG TABLET (FP) PO PRN (11:25)
[2025-05-01 12:43] LABS: HCV DIAGNOSTIC IN-HOUSE W/RFLX NON-REACTIVE (NONREACTIVE)
[2025-05-01 15:03] VITALS: RESP 18
[2025-05-01] MEDS: metFORMIN HCL 500 MG TABLET (FP) PO SCH ×2 (16:30→17:16)
[2025-05-01] MEDS ORDERED: metFORMIN HCL 500 MG TABLET (FP) PO SCH (16:35)
[2025-05-01 19:28] LABS: HIV INTERPRETATION NEGATIVE (NEGATIVE)
[2025-05-01] MEDS: ATORVASTATIN CA 40 MG TABLET (FP) PO SCH (21:32)
[2025-05-01] MEDS ORDERED: QUETIAPINE FUMARATE 200 MG, QUETIAPINE FUMARATE 50 MG PO SCH (22:00)
[2025-05-02 08:43] LABS: ABSOLUTE IMMATURE GRANULOCYTES 0.03 x10^3/uL (0.0-0.031); BASOPHILS # 0.04 x10^3/uL (0.01-0.08); EOSINOPHIL % 3.7 % (0.7-5.8); EOSINOPHILS # 0.30 x10^3/uL (0.04-0.36); MCHC 30.4 g/dl (32.2-35.5); MEAN CELL VOLUME 82.3 fl (79.4-94.8); MEAN PLT VOLUME 10.2 fl (9.4-12.3); MONOCYTE # 0.72 x10^3/uL (0.24-0.86); MONOCYTE % 8.9 % (4.7-12.5); RDW 15.0 % (12.4-16.4)
[2025-05-02 09:22] LABS: CO2 31.0 mmol/L (21-32); GLUCOSE,RANDOM 172.0 mg/dL (74-106)
[2025-05-02 09:24] LABS: CREATININE 0.7 mg/dL (0.55-1.3)
[2025-05-02 09:25] LABS: SGOT/AST 12.0 U/L (15-37); SGPT/ALT 18.0 U/L (13-61)
[2025-05-02 09:26] LABS: TOT PROT 6.0 g/dl (6.4-8.2)
[2025-05-02 09:27] LABS: ALK PHOS 113.0 U/L (45-117)
[2025-05-02] MEDS: POTASSIUM CHLORIDE ORAL LIQUID 20 MEQ/15 ML PO ONE (12:23)
[2025-05-02] MEDS: POTASSIUM CHLORIDE TABS 20 MEQ TABLET.ER (FP) PO SCH (23:37)
[2025-05-03 08:40] LABS: ABSOLUTE IMMATURE GRANULOCYTES 0.03 x10^3/uL (0.0-0.031); BASOPHILS # 0.04 x10^3/uL (0.01-0.08); EOSINOPHIL % 6.5 % (0.7-5.8); EOSINOPHILS # 0.42 x10^3/uL (0.04-0.36); MCHC 29.9 g/dl (32.2-35.5); MEAN CELL VOLUME 83.8 fl (79.4-94.8); MEAN PLT VOLUME 9.8 fl (9.4-12.3); MONOCYTE # 0.60 x10^3/uL (0.24-0.86); MONOCYTE % 9.2 % (4.7-12.5); RDW 15.2 % (12.4-16.4)
[2025-05-03 09:00] LABS: CO2 34.0 mmol/L (21-32); GLUCOSE,RANDOM 132.0 mg/dL (74-106)
[2025-05-03 09:03] LABS: CREATININE 0.7 mg/dL (0.55-1.3); SGOT/AST 14.0 U/L (15-37); SGPT/ALT 19.0 U/L (13-61)
[2025-05-03 09:04] LABS: TOT PROT 6.1 g/dl (6.4-8.2)
[2025-05-03 09:05] LABS: ALK PHOS 117.0 U/L (45-117)
[2025-05-03 14:27] VITALS: BP 128/87; PULSE 85; TEMP 98.1
== END 2025-05-03 16:09 | disposition home or self-care (01) | DRG 689 ==
LOC: JER 15:58 → JERBED 23:03 → J8W 05-01 02:16
PROVIDERS: ADMIT Internal Medicine; ATTEND Nurse Practitioner Family
DX: N39.0 Urinary tract infection, site not specified (principal); G93.41 Metabolic encephalopathy; I50.32 Chronic diastolic (congestive) heart failure; Z16.12 Extended spectrum beta lactamase (ESBL) resistance; J44.9 Chronic obstructive pulmonary disease, unspecified; G40.909 Epilepsy, unspecified, not intractable, without status epilepticus; F31.9 Bipolar disorder, unspecified; F17.200 Nicotine dependence, unspecified, uncomplicated; F41.0 Panic disorder [episodic paroxysmal anxiety]
CPT/HCPCS: 36415; 71045-TC-FY; 80053; 80175; 80177; 81003; 82962; 83735; 84100; 84484; 85025; 85027; 85610; 85730; 86803; 87086; 87389; 93306-TC; 93970-TC; 97116-GP; 97161-GP; 99285-25